=== PATIENT | female | born 1970 | race Caucasian/White ===

== ENCOUNTER 2016-06-08 10:38 | Inpatient (IN) | payer BC ==
[~2016-06-08] VITALS: Ht 160 cm; Wt 67.3 kg
--- NOTE | 2016-06-08 16:17 | DIAGNOSTIC IMAGING REPORT ---
PROCEDURE: US ABDOMEN ULTRASOUND-LIMITED INDICATION: Right abdominal pain. TECHNIQUE: Whipple scale and color Doppler sonographic images of the abdomen were obtained. COMPARISON: None. FINDINGS: Gallbladder is to moderately distended with trace pericholecystic fluid. No evidence of gallstones. Common duct is normal (6 mm). There is increased echogenicity of the liver compatible fatty infiltration (versus intrinsic liver disease). Portions of the pancreas are seen, demonstrating thickened tissues and heterogeneous appearance. Right kidney is of normal (10.2 cm).. IMPRESSION: 1. Increased echogenicity and heterogeneous appearance of the pancreas suggest pancreatitis. 2. Moderate increased echogenicity of the liver compatible fatty infiltration (versus intrinsic liver disease). 3. Moderate distention of the gallbladder with trace pericholecystic fluid, but no evidence of gallstones. 4. Normal common duct (7 mm). 5. Findings discussed with PAC. Moncho
--- NOTE | 2016-06-08 16:32 | DIAGNOSTIC IMAGING REPORT ---
PROCEDURE: CT ABD/PELVIS WITH CONTRAST CLINICAL INDICATION: No abdominal pain, initial encounter TECHNIQUE: 125 ml of Isovue 300 were injected intravenously and axial images were obtained of the entire abdomen and pelvis with sagittal and coronal reformations. COMPARISON: Abdominal ultrasound 06/08/2016 FINDINGS: ABDOMEN: Lung bases are clear. Heart size is normal. Enlarged liver (20.7 cm) with diffuse fatty infiltration. Distended gallbladder but no evidence of cholelithiasis. No biliary distention. There is inflammation around the head and tail of the pancreas with small amount of fluid in both anterior pararenal spaces. No evidence of a pseudocyst or calculi . Spleen, adrenal glands and kidneys are normal. Minor atherosclerosis. There is some fluid in the ascending and transverse colon. There is also fluid and several nondilated loops of small bowel. PELVIS: Punctate appendicolith in the tip of the appendix which is otherwise unremarkable. Small to mild ascites. 2 cm fibroid. 1.4 cm right ovarian cyst. Two small sclerotic right iliac lesions probably bone islands although neoplastic changes are a consideration. Correlate clinically. Mild degenerative changes of the spine . IMPRESSION: 1. Mild pancreatitis with a small to mild ascites 2. Distended gallbladder without gallstones. 3. Hepatomegaly with steatosis 4. Fluid in the ascending and transverse colon which may indicate enterocolitis 5. Fibroid 6. Two right iliac sclerotic lesions, likely bone islands. Neoplastic changes are a consideration. Correlate clinically 7. Results discussed with NANDO Ramirez All CT scans at this facility use dose modulation, iterative reconstruction, and/or weight-based dosing when appropriate to reduce radiation dose to as low as reasonably achievable.
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
--- NOTE | 2016-06-08 16:44 | ED ORDER SUMMARY ---
..... Patient: MARIELA [facility]OU [facility] VisitID: [id number] [address] [place] [address] 45y, F Registration Date/Time: 06/08/2016 ORDER SHEET Weight: 63.5 kg (stated) Allergies: No Known Drug Allergy GENERAL ORDERS: CBC w Diff Urgent (13:33 06/08/2016 EKoroleva P.A.-C) (Ack 13:35 LTapper) (14:22 HOShaughnessy R.N.) CMP Urgent (13:33 06/08/2016 EKoroleva P.A.-C) (Ack 13:35 LTapper) (14:22 HOShaughnessy R.N.) Lipase Urgent (13:33 06/08/2016 EKoroleva P.A.-C) (Ack 13:35 LTapper) (14:22 HOShaughnessy R.N.) US Abdomen Limited (No) Urgent (14:22 06/08/2016 EKoroleva P.A.-C) (Ack 14:27 LTapper) (18:28 HOShaughnessy R.N.) UA-Culture if indicated Urgent (14:23 06/08/2016 EKoroleva P.A.-C) (Ack 14:27 LTapper) (14:41 HOShaughnessy R.N.) Urine Urgent (14:23 06/08/2016 EKoroleva P.A.-C) (Ack 14:27 LTapper) (14:41 HOShaughnessy R.N.) Urine Drug Screen Urgent (14:23 06/08/2016 EKoroleva P.A.-C) (Ack 14:27 LTapper) (14:41 HOShaughnessy R.N.) CT Abd/Pel w Cont (No) (see lab) Urgent (15:49 06/08/2016 EKoroleva P.A.-C) (Ack 15:50 LTapper) (18:28 HOShaughnessy R.N.) MEDICATION ORDERS: Zofran ODT PO 4 mg (NOW) (13:32 06/08/2016 EKoroleva P.A.-C) (Ack 13:35 MWinterer R.N.) (13:41 MWinterer R.N.) Meclizine PO 25 mg (NOW) (13:32 06/08/2016 EKoroleva P.A.-C) (Ack 13:35 MWinterer R.N.) (13:40 MWinterer R.N.) Tylenol PO 650 mg (NOW) (13:32 06/08/2016 EKoroleva P.A.-C) (Ack 13:35 MWinterer R.N.) (13:40 MWinterer R.N.) Phenergan IV 12.5 mg (HIGH ALERT MEDICATION, NOW) (14:23 06/08/2016 EKoroleva P.A.-C) (14:39 HOShaughnessy R.N.) IV FLUIDS: Dilaudid IV 1 mg (HIGH ALERT MEDICATION, NOW) (14:22 06/08/2016 EKoroleva P.A.-C) (14:41 HOShaughnessy R.N.) Dilaudid IV 1 mg (HIGH ALERT MEDICATION, NOW) (18:44 06/08/2016 EKoroleva P.A.-C) (18:55 EInderbitzen R.N.) IV NS : initial bolus none -, then 100 mL/hr for X1 (NOW); Ten (18:45 06/08/2016 EKoroleva P.A.-C) (18:54 EInderbitzen R.N.) ORDER SHEET NOTES: [Electronically signed by Sahara CrandallAThomas-C (17:33 06/08/2016)] [Electronically signed by Terry Claire R.N. (00:39 06/09/2016)] [Electronically locked/signed by Terry Claire R.N. (00:39 06/09/2016)]
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
--- NOTE | 2016-06-08 16:44 | ED ORDER SUMMARY ---
..... Patient: MARIELA LOU OrderSheet [facility] VisitID: [id number] [address] [place] [address] 45y, F Registration Date/Time: 06/08/2016 ORDER SHEET Weight: 63.5 kg (stated) Allergies: No Known Drug Allergy GENERAL ORDERS: CBC w Diff Urgent (13:33 06/08/2016 EKoroleva P.A.-C) (Ack 13:35 LTapper) (14:22 HOShaughnessy R.N.) CMP Urgent (13:33 06/08/2016 EKoroleva P.A.-C) (Ack 13:35 LTapper) (14:22 HOShaughnessy R.N.) Lipase Urgent (13:33 06/08/2016 EKoroleva P.A.-C) (Ack 13:35 LTapper) (14:22 HOShaughnessy R.N.) US Abdomen Limited (No) Urgent (14:22 06/08/2016 EKoroleva P.A.-C) (Ack 14:27 LTapper) (18:28 HOShaughnessy R.N.) UA-Culture if indicated Urgent (14:23 06/08/2016 EKoroleva P.A.-C) (Ack 14:27 LTapper) (14:41 HOShaughnessy R.N.) Urine Urgent (14:23 06/08/2016 EKoroleva P.A.-C) (Ack 14:27 LTapper) (14:41 HOShaughnessy R.N.) Urine Drug Screen Urgent (14:23 06/08/2016 EKoroleva P.A.-C) (Ack 14:27 LTapper) (14:41 HOShaughnessy R.N.) CT Abd/Pel w Cont (No) (see lab) Urgent (15:49 06/08/2016 EKoroleva P.A.-C) (Ack 15:50 LTapper) (18:28 HOShaughnessy R.N.) MEDICATION ORDERS: Zofran ODT PO 4 mg (NOW) (13:32 06/08/2016 EKoroleva P.A.-C) (Ack 13:35 MWinterer R.N.) (13:41 MWinterer R.N.) Meclizine PO 25 mg (NOW) (13:32 06/08/2016 EKoroleva P.A.-C) (Ack 13:35 MWinterer R.N.) (13:40 MWinterer R.N.) Tylenol PO 650 mg (NOW) (13:32 06/08/2016 EKoroleva P.A.-C) (Ack 13:35 MWinterer R.N.) (13:40 MWinterer R.N.) Phenergan IV 12.5 mg (HIGH ALERT MEDICATION, NOW) (14:23 06/08/2016 EKoroleva P.A.-C) (14:39 HOShaughnessy R.N.) IV FLUIDS: Dilaudid IV 1 mg (HIGH ALERT MEDICATION, NOW) (14:22 06/08/2016 EKoroleva P.A.-C) (14:41 HOShaughnessy R.N.) Dilaudid IV 1 mg (HIGH ALERT MEDICATION, NOW) (18:44 06/08/2016 EKoroleva P.A.-C) (18:55 EInderbitzen R.N.) IV NS : initial bolus none -, then 100 mL/hr for X1 (NOW); Ten (18:45 06/08/2016 EKoroleva P.A.-C) (18:54 EInderbitzen R.N.) ORDER SHEET NOTES: [Electronically signed by Sahara CrandallAThomas-C (17:33 06/08/2016)] [Electronically signed by Terry Claire R.N. (00:39 06/09/2016)] [Electronically locked/signed by Terry Claire R.N. (00:39 06/09/2016)]
--- NOTE | 2016-06-08 17:55 | History & Physical Report ---
Admission Admit Date 06/08/16 Information Source Information Source: Self Reliability: Fair History Chief Complaint Recurrent nausea vomiting and upper abdominal pain History of Present Illness This is a 45-year-old female who presents to the emergency room with recurrent nausea vomiting and upper abdominal pain. She notices the pain going on for about a week or so. About 2-1/2 weeks prior to admission she accidentally fell and has been having some headaches since then. She notes no fevers or chills. She denies any alteration in mental status confusion or any other neurological symptoms besides headache. She had no loss of consciousness with this fall. She does have a history of EtOH significant use and tells me that she had gone through an alcohol withdrawal program about 2 years ago. She notes she has not drink very much over the past several weeks. She notes last drink may have been about 2-1/2 weeks ago. She has no history of hyperlipidemia. Her evaluation in the emergency room includes a CT scan of abdomen and pelvis and an ultrasound which does not reveal cholelithiasis. Her labs are significant for an elevated AST of 98 however ALT is normal total bilirubin and alkaline phosphatase are normal. Her lipase however has been noted to be 2100. She did have an elevated white count and was tachycardic upon presentation to the emergency room. Her heart rate was 119 regular and blood pressure was 120/82 with temperature of 98.2 upon presentation here. Patient History 1. Fall from ground level Social History Smoking: Quit 2 years ago Alcohol: Currently admits to drinking twice a month. Although as noted in HPI did go through alcohol withdrawal treatment and rehabilitation in 2011 This with male significant other and children Family History MOTHER (Mother with a history of colon cancer diagnosed age 58 and soon afterwardsGrandmother with a history of bladder and breast carcinoma). . Relation not specified for: Colon Cancer Medications and Allergies Medications Home medications: Are Wellbutrin daily unknown dose Current Medications Sig/Binh Start time Last Medication Dose Route Stop Time Status Admin Multivit/ 1 TAB DAILY 06/09 0900 UNV Folic Acid/Iron PO Thiamine HCl 100 MG DAILY 06/09 0900 UNV PO Famotidine/Sodium 50 ML Q12HR 06/08 2100 UNV Chloride IV Diazepam 5 MG PRN PRN 06/08 1800 UNV IV Atropine Sulfate 0.5 MG Q3MIN PRN 06/08 1745 UNV IV Dextrose/Sodium 1,000 ML ASDIRECTED 06/08 1745 UNV Chloride/Electrolyt IV 06/08 2100 Hydromorphone HCl See Dose Q2H PRN 06/08 1745 UNi Insts (1) IV 06/08 2100 Lidocaine HCl See Dose ONCE PRN 06/08 1745 UNi Insts (2) IV Morphine Sulfate 2 MG Q3M PRN 06/08 1745 UNV IV Ondansetron HCl 4 MG Q4H PRN 06/08 1745 UNV IV 06/08 2100 Enoxaparin Sodium 40 MG QAM 06/08 1739 UNVr SC Acetaminophen 650 MG Q6H PRN 06/08 1730 UNV PO Hydromorphone HCl 1 MG Q1H PRN 06/08 1730 UNV IV Naloxone HCl 0.4 MG PRN PRN 06/08 1730 UNV IV Ondansetron HCl 4 MG Q6H PRN 06/08 1730 UNV IV Sodium Chloride 1,000 ML ASDIRECTED 06/08 1730 UNV IV Dose Instructions: (1)Hydromorphone HCl: 0.5-1 MG (2)Lidocaine HCl: 1.5 MG/KG Allergies Coded Allergies: NKA (06/08/16) Review of Systems Constitutional Malaise. Denies: Fever, Chills, Sweats, Weakness. Eyes Denies: Pain, Vision Change, Conjunctival Inflammation, Redness. ENT Denies: Ear Pain, Ear Discharge, Nose Pain, Nasal Discharge, Nasal Congestion. Respiratory Denies: Cough, SOB w/exertion, Wheezing, Hemoptysis, Pleuritic Pain. Cardiovascular Denies: Chest Pain, Palpitations, Orthopnea, PND, Edema, Light-headedness. Gastrointestinal Nausea, Vomiting, Abdominal Pain. Denies: Diarrhea, Constipation, Melena, Hematochezia. Genitourinary Denies: Dysuria, Frequency. Musculoskeletal Neck Pain (has had some neck pain improvi). Denies: Shoulder Pain, Arm Pain, Back Pain. Skin Denies: Rash, Lesions, Jaundice. Neurological Other (complains of mild headaches on). Denies: Weakness, Numbness, Incoordination, Change in speech, Confusion, Seizures. Physical Exam Vital Signs / I&Os See T system for vital sign review General Appearance Alert, Oriented X3, Cooperative, Mild distress HEENT Normal exam, PERRLA, EOMI Lungs Clear to auscultation, Normal air movement Neck Supple, No JVD, No masses Cardiovascular Regular rate and rhythm (tachycardic but regular rhythm), Normal S1 and S2, No murmurs, gallops, rubs Abdomen abdomen is soft it is tender diffusely but worse in the epigastrium. No rebound or guarding noted. Bowel sounds are present. Extremities No edema Skin No Rashes Neurological alert and oriented 3, motor and sensory are intact bilaterally. Psych/Mental Status does appear slightly anxious area LAB Results Laboratory Tests 06/08 06/08 06/08 1345 1346 1434 Chemistry Plasma Sodium (136 - 145 mmol/L) 137 Plasma Potassium (3.5 - 5.1 mmol/L) 3.4 Plasma Chloride (98 - 107 mmol/L) 97 CO2 (Enzymatic) (21 - 32 mmol/L) 36 BUN (7 - 18 mg/dL) 15 Creatinine (0.6 - 1.3 mg/dL) 0.8 Est GFR ( Amer) (mL/min) >60 Est GFR (Non-Af Amer) (mL/min) >60 Glucose (70 - 110 mg/dL) 88 Plasma Calcium (8.5 - 10.1 mg/dL) 9.1 Total Bilirubin (0.0 - 1.0 mg/dL) 0.7 AST (15 - 37 U/L) 98 ALT (12 - 78 U/L) 40 Alkaline Phosphatase (46 - 116 U/L) 73 Troponin Pending Total Protein (6.4 - 8.2 g/dL) 7.1 Albumin (3.3 - 5.0 g/dL) 3.0 Lipase (73 - 393 U/L) 2198 Hematology WBC (4.5 - 11.5 K/uL) 18.5 RBC (4.00 - 5.20 M/uL) 4.15 Hgb (12.0 - 16.0 gm/dL) 13.6 Hct (36.0 - 46.0 %) 43.2 MCV (80 - 100 fL) 104 MCH (26 - 34 pg) 33 RDW (11.6 - 14.8 %) 19.5 Neut % (Auto) (50 - 75 %) 89.1 Lymph % (Auto) (25 - 40 %) 4.9 [place] % (Auto) (3 - 14 %) 5.8 Eos % (Auto) (0 - 4 %) 0.1 Baso % (Auto) (0 - 2 %) 0.1 Plt Count, EDTA (150 - 400 K/uL) 169 PUBS MCHC (31 - 37 g/dL) 31 Toxicology Urine Opiates Screen (NEGATIVE) NEGATIVE Urine Methadone Screen (NEGATIVE) NEGATIVE Ur Barbiturates Screen (NEGATIVE) NEGATIVE U Amphetamin/Meth Scrn (NEGATIVE) NEGATIVE MDMA (Ecstasy) Screen (NEGATIVE) POSITIVE U Benzodiazepines Scrn (NEGATIVE) NEGATIVE Urine Cocaine Screen (NEGATIVE) NEGATIVE U Cannabinoids Screen (NEGATIVE) NEGATIVE Urines Urine Color YELLOW Urine Appearance CLEAR Urine pH (5.0 - 8.0) 6.0 Ur Specific [place] (1.010 - 1.030) 1.025 Urine Protein (NEGATIVE) 2+ Urine Ketones (NEGATIVE) 1+ Urine Blood (NEGATIVE) TRACE-INTACT Urine Nitrite (NEGATIVE) NEGATIVE Urine Bilirubin (NEGATIVE) 2+ Ur Bilirubin Confirm (NEGATIVE) NEGATIVE Urine Urobilinogen (0.2 - 1.0 EU/dL) 0.2 Ur Leukocyte Esterase (NEGATIVE) NEGATIVE Urine RBC (0 - 1 rbc/hpf) 3-5 Urine WBC (0 - 1 wbc/hpf) NONE SEEN Ur Epithelial Cells (0 - 5 EPI/hpf) 1-3 Urine Bacteria (NONE SEEN) NONE SEEN Urine Glucose (NEGATIVE) NEGATIVE Urine Comment CULT NOT INDICATED 06/08 06/08 1434 1746 Chemistry Plasma Magnesium Pending Urines Urine Test NEGATIVE Imaging REPORT #: [id number] DATE OF EXAM(S): 06/08/16 PROCEDURE: CT ABD/PELVIS WITH CONTRAST CLINICAL INDICATION: No abdominal pain, initial encounter TECHNIQUE: 125 ml of Isovue 300 were injected intravenously and axial images were obtained of the entire abdomen and pelvis with sagittal and coronal reformations. COMPARISON: Abdominal ultrasound 06/08/2016 FINDINGS: ABDOMEN: Lung bases are clear. Heart size is normal. Enlarged liver (20.7 cm) with diffuse fatty infiltration. Distended gallbladder but no evidence of cholelithiasis. No biliary distention. There is inflammation around the head and tail of the pancreas with small amount of fluid in both anterior pararenal spaces. No evidence of a pseudocyst or calculi . Spleen, adrenal glands and kidneys are normal. Minor atherosclerosis. There is some fluid in the ascending and transverse colon. There is also fluid and several nondilated loops of small bowel. PELVIS: Punctate appendicolith in the tip of the appendix which is otherwise unremarkable. Small to mild ascites. 2 cm fibroid. 1.4 cm right ovarian cyst. Two small sclerotic right iliac lesions probably bone islands although neoplastic changes are a consideration. Correlate clinically. Mild degenerative changes of the spine . IMPRESSION: 1. Mild pancreatitis with a small to mild ascites 2. Distended gallbladder without gallstones. 3. Hepatomegaly with steatosis 4. Fluid in the ascending and transverse colon which may indicate enterocolitis 5. Fibroid 6. Two right iliac sclerotic lesions, likely bone islands. Neoplastic changes are a consideration. Correlate clinically 7. Results discussed with NANDO Ramirez All CT scans at this facility use dose modulation, iterative reconstruction, and/or weight-based dosing when appropriate to reduce radiation dose to as low as reasonably achievable. Dictated by: SUZI HUSTON MD D: LAN;06/08/16 1631 <Electronically signed by SUZI HUSTON MD in OV> 06/08/16 1632 REPORT #: [id number] DATE OF EXAM(S): 06/08/16 PROCEDURE: US ABDOMEN ULTRASOUND-LIMITED INDICATION: Right abdominal pain. TECHNIQUE: Whipple scale and color Doppler sonographic images of the abdomen were obtained. COMPARISON: None. FINDINGS: Gallbladder is to moderately distended with trace pericholecystic fluid. No evidence of gallstones. Common duct is normal (6 mm). There is increased echogenicity of the liver compatible fatty infiltration (versus intrinsic liver disease). Portions of the pancreas are seen, demonstrating thickened tissues and heterogeneous appearance. Right kidney is of normal (10.2 cm).. IMPRESSION: 1. Increased echogenicity and heterogeneous appearance of the pancreas suggest pancreatitis. 2. Moderate increased echogenicity of the liver compatible fatty infiltration (versus intrinsic liver disease). 3. Moderate distention of the gallbladder with trace pericholecystic fluid, but no evidence of gallstones. 4. Normal common duct (7 mm). 5. Findings discussed with NANDO Ivan. Dictated by: FLACA ALDRIDGE MD D: ADÁN;06/08/161615 <Electronically signed by FLACA ALDRIDGE MD in OV> 06/08/161616 Assessment and Plan Problem List 1. Acute pancreatitis Qualifiers Pancreatitis type: unspecified pancreatitis type Acute pancreatitis complication: unspecified Qualified Code: K85.90 - Acute pancreatitis without necrosis or infection, unspecified Status Acute Onset Date 06/01/[address] on nothing by mouth status. IV fluid hydration at 200 mils per hour of normal saline Recheck labs in a.m. Unclear etiology consider MRCP. We'll check fasting lipid panel in a.m. May be related to EtOH history is a bit vague we'll check blood alcohol level. No new medications to possibly incite acute pancreatitis. 2. History of ETOH abuse Status Chronic Plan We'll monitor for signs and symptoms of EtOH withdrawal. We'll place on alcohol CIWA protocol. Of note patient did have a positive UDS for ecstasy AKA MDMA 3. HEPATIC STEATOSIS Plan Has evidence of hepatic steatosis. Her imaging may be related to EtOH abuse. May be related to hyperlipidemia. Patient is not morbidly obese to be an etiology. 4. DVT prophylaxis Plan We'll place on subcutaneous prophylactic Lovenox. We'll also check PT PTT. Especially in light of hepatic steatosis and EtOH abuse. E&M Codes Admission: Inpt-High/[id number]
[2016-06-08 19:51] VITALS: BP 130/89
[2016-06-08] MEDS ORDERED: WELLBUTRIN SR200 MG PO (23:21)
--- NOTE | 2016-06-09 00:40 | ED DISCHARGE INSTRUCTIONS ---
Patient: MARIELA LOU General Instructions [facility] VisitID: [id number] [address] [place] [address] 45y, F Registration Date/Time: 06/08/2016 Pancreatitis Ground Level fall Concussion. (Electronically signed by Sahara Crandall P.A.-C 06/08/2016 17:33)
--- NOTE | 2016-06-09 00:40 | ED DISCHARGE INSTRUCTIONS ---
Patient: MARIELA LOU General Instructions [facility] VisitID: [id number] [address] [place] [address] 45y, F Registration Date/Time: 06/08/2016 Pancreatitis Ground Level fall Concussion. (Electronically signed by Sahara Crandall P.A.-C 06/08/2016 17:33)
--- NOTE | 2016-06-09 00:40 | ED MAR SUMMARY ---
..... Medication Administration Record [facility] [address] [place] [address] Patient: MARIELA LOU Visit ID: [id number] 45y, F Weight: 63.5 kg Height/Length: 63 in BMI: 24.8 ALLERGIES: No Known Drug Allergy Given 13:40 06/08/2016 Luna Maurer R.N. Medication Administered: MECLIZINE [PO], Dose: 25 mg PO. Medication Ordered: Meclizine PO 25 mg (NOW). Given 13:06/08/2016 Luna Maurer R.N. Medication Administered: TYLENOL [PO] (ACETAMINOPHEN), Dose: 650 mg PO. Medication Ordered: Tylenol PO 650 mg (NOW). Given 13:06/08/2016 Luna Maurer R.N. Medication Administered: ZOFRAN ODT [PO] (ONDANSETRON), Dose: 4 mg PO. Medication Ordered: Zofran ODT PO 4 mg (NOW). Given 14:39 06/08/2016 Terry Claire R.N. Medication Administered: PHENERGAN [IVP] (PROMETHAZINE HCL), Dose: 12.5 mg IVP over 5 minute(s), Site: #1 right forearm. Medication Ordered: Phenergan IV 12.5 mg (HIGH ALERT MEDICATION, NOW). Given 14:06/08/2016 Terry Claire R.N. Medication Administered: DILAUDID [IVP] (HYDROMORPHONE HCL PF), Dose: 1 mg IVP over 2 minute(s), Site: #1 right forearm. Medication Ordered: Dilaudid IV 1 mg (HIGH ALERT MEDICATION, NOW). Given 18:50 06/08/2016 Eliane Butt R.N. Medication Administered: DILAUDID [IVP] (HYDROMORPHONE HCL PF), Dose: 1 mg IVP over 1 minute(s), Site: #1 right forearm. Medication Ordered: Dilaudid IV 1 mg (HIGH ALERT MEDICATION, NOW). Start 18:50 06/08/2016 Inderbitzen, Eliane, R.N. Medication Administered: IV NS (SALINE), Dose: IV Fluids over 10 hour(s), Rate: 100 mL/hr, Dispensed: 1000 mL bag, Site: #1 right forearm. Medication Ordered: IV NS : initial bolus none -, then 100 mL/hr for X1 (NOW); Ten.
--- NOTE | 2016-06-09 00:40 | ED MAR SUMMARY ---
..... Medication Administration Record [facility] [address] [place] [place] [address] Patient: MARIELA LOU Visit ID: [id number] 45y, F Weight: 63.5 kg Height/Length: 63 in BMI: 24.8 ALLERGIES: No Known Drug Allergy Given 13:40 06/08/2016 Luna Maurer R.N. Medication Administered: MECLIZINE [PO], Dose: 25 mg PO. Medication Ordered: Meclizine PO 25 mg (NOW). Given 13:06/08/2016 Luna Maurer R.N. Medication Administered: TYLENOL [PO] (ACETAMINOPHEN), Dose: 650 mg PO. Medication Ordered: Tylenol PO 650 mg (NOW). Given 13:06/08/2016 Luna Maurer R.N. Medication Administered: ZOFRAN ODT [PO] (ONDANSETRON), Dose: 4 mg PO. Medication Ordered: Zofran ODT PO 4 mg (NOW). Given 14:39 06/08/2016 Terry Claire R.N. Medication Administered: PHENERGAN [IVP] (PROMETHAZINE HCL), Dose: 12.5 mg IVP over 5 minute(s), Site: #1 right forearm. Medication Ordered: Phenergan IV 12.5 mg (HIGH ALERT MEDICATION, NOW). Given 14:06/08/2016 Terry Claire R.N. Medication Administered: DILAUDID [IVP] (HYDROMORPHONE HCL PF), Dose: 1 mg IVP over 2 minute(s), Site: #1 right forearm. Medication Ordered: Dilaudid IV 1 mg (HIGH ALERT MEDICATION, NOW). Given 18:50 06/08/2016 Eliane Butt R.N. Medication Administered: DILAUDID [IVP] (HYDROMORPHONE HCL PF), Dose: 1 mg IVP over 1 minute(s), Site: #1 right forearm. Medication Ordered: Dilaudid IV 1 mg (HIGH ALERT MEDICATION, NOW). Start 18:50 06/08/2016 Inderbitzen, Eliane, R.N. Medication Administered: IV NS (SALINE), Dose: IV Fluids over 10 hour(s), Rate: 100 mL/hr, Dispensed: 1000 mL bag, Site: #1 right forearm. Medication Ordered: IV NS : initial bolus none -, then 100 mL/hr for X1 (NOW); Ten.
--- NOTE | 2016-06-09 00:40 | ED MED RECONCILIATION SUMMARY ---
Patient: MARIELA LOU Medication Reconciliation Report [facility] VisitID: [id number] [address] [place] [address] 45y, F Registration Date/Time: 06/08/2016 Weight: 63.5 kg Height/Length: 63 in. BMI: 24.8 ALLERGIES: No Known Drug Allergy The patient's Home Medications are listed below: THE FOLLOWING MEDICATIONS NEED TO BE RECONCILED: Control Pills Wellbutrin Oral 100 mg, 2x a day The source(s) of the original Home Medication information: Not obtained. The following Medications were given to the patient in the Emergency Department: Tylenol [PO] PO 650 mg, administered: 06/08/2016 1:40:00 PM Meclizine [PO] PO 25 mg, administered: 06/08/2016 1:40:00 PM Zofran ODT [PO] PO 4 mg, administered: 06/08/2016 1:41:00 PM PHENERGAN [IVP] IVP 12.5 mg, administered: 06/08/2016 2:39:00 PM Dilaudid [IVP] IVP 1 mg, administered: 06/08/2016 2:41:00 PM IV NS IV Fluids bolus 0, then 100 mL/hr, administered: 06/08/2016 6:50:00 PM Dilaudid [IVP] IVP 1 mg, administered: 06/08/2016 6:50:00 PM The following Medications were prescribed to the patient: None.
--- NOTE | 2016-06-09 00:40 | ED MED RECONCILIATION SUMMARY ---
Patient: MARIELA LOU Medication Reconciliation Report [facility] VisitID: [id number] [address] [place] [address] 45y, F Registration Date/Time: 06/08/2016 Weight: 63.5 kg Height/Length: 63 in. BMI: 24.8 ALLERGIES: No Known Drug Allergy The patient's Home Medications are listed below: THE FOLLOWING MEDICATIONS NEED TO BE RECONCILED: Control Pills Wellbutrin Oral 100 mg, 2x a day The source(s) of the original Home Medication information: Not obtained. The following Medications were given to the patient in the Emergency Department: Tylenol [PO] PO 650 mg, administered: 06/08/2016 1:40:00 PM Meclizine [PO] PO 25 mg, administered: 06/08/2016 1:40:00 PM Zofran ODT [PO] PO 4 mg, administered: 06/08/2016 1:41:00 PM PHENERGAN [IVP] IVP 12.5 mg, administered: 06/08/2016 2:39:00 PM Dilaudid [IVP] IVP 1 mg, administered: 06/08/2016 2:41:00 PM IV NS IV Fluids bolus 0, then 100 mL/hr, administered: 06/08/2016 6:50:00 PM Dilaudid [IVP] IVP 1 mg, administered: 06/08/2016 6:50:00 PM The following Medications were prescribed to the patient: None.
[2016-06-09 02:49] VITALS: BP 122/80
[2016-06-09 06:14] VITALS: BP 113/78
--- NOTE | 2016-06-09 07:21 | Progress Note ---
Subjective General This is a 45-year-old female who presents to the emergency room with recurrent nausea vomiting and upper abdominal pain. She notices the pain going on for about a week or so. About 2-1/2 weeks prior to admission she accidentally fell and has been having some headaches since then. She notes no fevers or chills. She denies any alteration in mental status confusion or any other neurological symptoms besides headache. She had no loss of consciousness with this fall. She does have a history of EtOH significant use and tells me that she had gone through an alcohol withdrawal program about 2 years ago. She notes she has not drink very much over the past several weeks. She notes last drink may have been about 2-1/2 weeks ago. She has no history of hyperlipidemia. Her evaluation in the emergency room includes a CT scan of abdomen and pelvis and an ultrasound which does not reveal cholelithiasis. Her labs are significant for an elevated AST of 98 however ALT is normal total bilirubin and alkaline phosphatase are normal. Her lipase however has been noted to be 2100. She did have an elevated white count and was tachycardic upon presentation to the emergency room. Current: Patient states that she is very thirsty. Has abdominal pain still. Has not been with n/v. Has been moving around a little better. Physical Exam Vital Signs / I&Os Vital Signs Date Time Temp Pulse Resp B/P Pulse O2 O2 Flow FiO2 Ox Delivery Rate 06/09 0614 98.2 95 16 113/78 95 Room Air 06/09 0249 98.4 99 16 122/80 98 Room Air 06/08 1951 98.2 110 16 130/89 97 I&O 06/09 0000 06/08 1600 06/08 0800 Intake Total Output Total 300 Balance -300 General Appearance Alert, Cooperative Lungs Clear to auscultation, Normal air movement Cardiovascular Regular rate and rhythm, No murmurs, gallops, rubs Abdomen Soft, mildly tender to palpation. Extremities No edema LAB Results Laboratory Tests 06/09 06/09 06/08 06/08 06/08 0535 0150 2120 1746 1434 Chemistry Plasma Sodium (136 - 145 mmol/L) 142 Plasma Potassium (3.5 - 5.1 mmol/L) 3.1 Plasma Chloride (98 - 107 mmol/L) 104 CO2 (Enzymatic) (21 - 32 mmol/L) 32 BUN (7 - 18 mg/dL) 17 Creatinine (0.6 - 1.3 mg/dL) 0.7 Est GFR ( Amer) (mL/min) >60 Est GFR (Non-Af Amer) (mL/min) >60 Glucose (70 - 110 mg/dL) 72 Lactic Acid (0.4 - 2.0 mmol/L) 1.0 Plasma Calcium (8.5 - 10.1 mg/dL) 7.7 Plasma Magnesium (1.8 - 2.4 mg/dL) 2.1 1.2 Total Bilirubin (0.0 - 1.0 mg/dL) 0.6 AST (15 - 37 U/L) 56 ALT (12 - 78 U/L) 37 Alkaline Phosphatase (46 - 116 U/L) 60 Troponin (0.00 - 1.5 ng/mL) <0.05 Total Protein (6.4 - 8.2 g/dL) 6.2 Albumin (3.3 - 5.0 g/dL) 2.6 Triglycerides (30 - 200 mg/dL) 39 Cholesterol (140 - 200 mg/dL) 151 LDL Cholesterol, Calc (mg/dL) 60 HDL Cholesterol (32 - 96 mg/dL) 84 LDL/HDL Ratio 0.7 Cholesterol/HDL Ratio 1.8 Coronary Risk Interp (0.4 - 1.0) 0.4 Lipase (73 - 393 U/L) 963 Coagulation INR (0.8 - 1.2) 1.0 APTT (24 - 34 SECONDS) 39 Hematology WBC Pending RBC Pending Hgb Pending Hct Pending MCV Pending MCH Pending RDW Pending Plt Count, EDTA Pending PUBS MCHC Pending Toxicology Plasma/Serum Ethyl Alc (3 - 10 mg/dL) <3 Urines Urine Test NEGATIVE 06/08 06/08 06/08 1434 1346 1345 Chemistry Plasma Sodium (136 - 145 mmol/L) 137 Plasma Potassium (3.5 - 5.1 mmol/L) 3.4 Plasma Chloride (98 - 107 mmol/L) 97 CO2 (Enzymatic) (21 - 32 mmol/L) 36 BUN (7 - 18 mg/dL) 15 Creatinine (0.6 - 1.3 mg/dL) 0.8 Est GFR ( Amer) (mL/min) >60 Est GFR (Non-Af Amer) (mL/min) >60 Glucose (70 - 110 mg/dL) 88 Plasma Calcium (8.5 - 10.1 mg/dL) 9.1 Total Bilirubin (0.0 - 1.0 mg/dL) 0.7 AST (15 - 37 U/L) 98 ALT (12 - 78 U/L) 40 Alkaline Phosphatase (46 - 116 U/L) 73 Troponin (0.00 - 1.5 ng/mL) <0.05 Total Protein (6.4 - 8.2 g/dL) 7.1 Albumin (3.3 - 5.0 g/dL) 3.0 Lipase (73 - 393 U/L) 2198 Hematology WBC (4.5 - 11.5 K/uL) 18.5 RBC (4.00 - 5.20 M/uL) 4.15 Hgb (12.0 - 16.0 gm/dL) 13.6 Hct (36.0 - 46.0 %) 43.2 MCV (80 - 100 fL) 104 MCH (26 - 34 pg) 33 RDW (11.6 - 14.8 %) 19.5 Neut % (Auto) (50 - 75 %) 89.1 Lymph % (Auto) (25 - 40 %) 4.9 [place] % (Auto) (3 - 14 %) 5.8 Eos % (Auto) (0 - 4 %) 0.1 Baso % (Auto) (0 - 2 %) 0.1 Plt Count, EDTA (150 - 400 K/uL) 169 PUBS MCHC (31 - 37 g/dL) 31 Toxicology Urine Opiates Screen (NEGATIVE) NEGATIVE Urine Methadone Screen (NEGATIVE) NEGATIVE Ur Barbiturates Screen (NEGATIVE) NEGATIVE U Amphetamin/Meth Scrn (NEGATIVE) NEGATIVE MDMA (Ecstasy) Screen (NEGATIVE) POSITIVE U Benzodiazepines Scrn (NEGATIVE) NEGATIVE Urine Cocaine Screen (NEGATIVE) NEGATIVE U Cannabinoids Screen (NEGATIVE) NEGATIVE Urines Urine Color YELLOW Urine Appearance CLEAR Urine pH (5.0 - 8.0) 6.0 Ur Specific [place] (1.010 - 1.030) 1.025 Urine Protein (NEGATIVE) 2+ Urine Ketones (NEGATIVE) 1+ Urine Blood (NEGATIVE) TRACE-INTACT Urine Nitrite (NEGATIVE) NEGATIVE Urine Bilirubin (NEGATIVE) 2+ Ur Bilirubin Confirm (NEGATIVE) NEGATIVE Urine Urobilinogen (0.2 - 1.0 EU/dL) 0.2 Ur Leukocyte Esterase (NEGATIVE) NEGATIVE Urine RBC (0 - 1 rbc/hpf) 3-5 Urine WBC (0 - 1 wbc/hpf) NONE SEEN Ur Epithelial Cells (0 - 5 EPI/hpf) 1-3 Urine Bacteria (NONE SEEN) NONE SEEN Urine Glucose (NEGATIVE) NEGATIVE Urine Comment CULT NOT INDICATED Assessment and Plan Problem List 1. Acute pancreatitis Qualifiers Pancreatitis type: unspecified pancreatitis type Acute pancreatitis complication: unspecified Qualified Code: K85.90 - Acute pancreatitis without necrosis or infection, unspecified Status Acute Onset Date 06/01/16 Plan Continues with elevated lipase. Will have surgical consult regarding her gallbladder distention and pancreatitis. 2. Fall from ground level Plan Appears to be doing better. 3. History of ETOH abuse Status Chronic Plan Has etoh that is not active.
[2016-06-09 10:44] VITALS: BP 125/90
[2016-06-09 14:30] VITALS: BP 131/75
[2016-06-09 18:20] VITALS: BP 128/91
[2016-06-09 22:27] VITALS: BP 124/72
[2016-06-10 06:37] VITALS: BP 137/90
--- NOTE | 2016-06-10 07:18 | Progress Note ---
Subjective General 45 year old female that was admitted with abdominal pain and pancreatitis. Had stopped drinking the day prior. Has had some issues of withdrawls mild. No stones seen on scan and mildly enlarged gallbladder. Had some improvement with abdominal pain yesterday and improvement in lipase. Today she states she is feeling better. No cp,sob. Has been really tired mostly. Less abdominal pain. Physical Exam Vital Signs / I&Os Vital Signs Date Time Temp Pulse Resp B/P Pulse O2 O2 Flow FiO2 Ox Delivery Rate 06/10 0637 98.6 87 18 137/90 99 Room Air 06/10 0531 20 97 06/09 2310 91 20 100 2.5 06/09 2227 99.7 90 18 124/72 100 Nasal 1.0 Cannula 06/09 1820 99.1 98 18 128/91 97 Nasal 1.0 Cannula 06/09 1630 Nasal 2.0 Cannula 06/09 1600 88 16 99 06/09 1430 98.8 89 22 131/75 100 Room Air 06/09 1316 104 22 96 06/09 1044 99.9 108 16 125/90 96 Room Air I&O 06/10 0000 06/09 1600 06/09 0800 Intake Total 997 1181 Output Total 550 300 200 Balance 447 -300 981 General Appearance Alert, Cooperative Lungs Clear to auscultation, Normal air movement Cardiovascular Regular rate and rhythm, No murmurs, gallops, rubs Abdomen Soft, minimally tender to palpation Extremities No edema LAB Results Laboratory Tests 06/10 06/09 0545 0945 Chemistry Plasma Sodium (136 - 145 mmol/L) 138 Plasma Potassium (3.5 - 5.1 mmol/L) 4.0 Plasma Chloride (98 - 107 mmol/L) 104 CO2 (Enzymatic) (21 - 32 mmol/L) 28 BUN (7 - 18 mg/dL) 7 Creatinine (0.6 - 1.3 mg/dL) 0.4 Est GFR ( Amer) (mL/min) >60 Est GFR (Non-Af Amer) (mL/min) >60 Glucose (70 - 110 mg/dL) 96 Plasma Calcium (8.5 - 10.1 mg/dL) 7.3 Total Bilirubin (0.0 - 1.0 mg/dL) 0.4 AST (15 - 37 U/L) 33 ALT (12 - 78 U/L) 25 Alkaline Phosphatase (46 - 116 U/L) 60 Troponin (0.00 - 1.5 ng/mL) <0.05 Total Protein (6.4 - 8.2 g/dL) 5.3 Albumin (3.3 - 5.0 g/dL) 2.3 Lipase (73 - 393 U/L) 771 Hematology WBC (4.5 - 11.5 K/uL) 11.9 RBC (4.00 - 5.20 M/uL) 3.15 Hgb (12.0 - 16.0 gm/dL) 10.7 Hct (36.0 - 46.0 %) 31.4 MCV (80 - 100 fL) 100 MCH (26 - 34 pg) 34 RDW (11.6 - 14.8 %) 18.9 Gran % (53 - 90) 85.6 Lymph % (Auto) (25 - 40 %) 13.3 [place] % (Auto) (3 - 14 %) 1.1 Plt Count, EDTA (150 - 400 K/uL) 154 PUBS MCHC (31 - 37 g/dL) 34 Assessment and Plan Problem List 1. Pancreatitis Plan Patient with pancreatitis and will hold on PO still until she is improved more with the abdominal pain and the lipase. Etohic pancreatitis is our working diagnosis and she agrees with this. 2. History of ETOH abuse Status Chronic Plan Has recently quit and not much withdrawls per patient.
[2016-06-10 14:40] VITALS: BP 133/92
[2016-06-10 18:15] VITALS: BP 129/94
[2016-06-10 23:06] VITALS: BP 124/69
[2016-06-11 02:51] VITALS: BP 126/75
[2016-06-11 06:39] VITALS: BP 120/86
--- NOTE | 2016-06-11 07:26 | Progress Note ---
Subjective General 45 year old female that was admitted with abdominal pain and pancreatitis. Had stopped drinking the day prior. Has had some issues of withdrawls mild. No stones seen on scan and mildly enlarged gallbladder. Had some improvement with abdominal pain yesterday and improvement in lipase. Patient states she is feeling a little better. Not as tired and or confused. Abdominal pain is doing a little better overall. Still a little tender. A little thirsty but not feeling dehydrated and urinating very well. Physical Exam Vital Signs / I&Os Vital Signs Date Time Temp Pulse Resp B/P Pulse O2 O2 Flow FiO2 Ox Delivery Rate 06/11 0639 98.1 87 18 120/86 99 Room Air 06/11 0251 98.2 80 16 126/75 99 Room Air 06/10 2306 98.6 94 16 124/69 98 Room Air 06/10 1815 98.1 97 18 129/94 97 Room Air 06/10 1440 98.4 93 18 133/92 96 Room Air 06/10 1130 98.8 87 18 100 Room Air I&O 06/11 0000 06/10 1600 06/10 0800 Intake Total 908 1411 901 Output Total 2100 775 500 Balance -1192 636 401 General Appearance Alert, Oriented X3 HEENT Normal exam Lungs Clear to auscultation, Normal air movement Cardiovascular Regular rate and rhythm Abdomen Soft, No tenderness Extremities No edema LAB Results Laboratory Tests 06/11 06/10 0548 0900 Chemistry Plasma Sodium (136 - 145 mmol/L) 138 Plasma Potassium (3.5 - 5.1 mmol/L) 3.7 Plasma Chloride (98 - 107 mmol/L) 103 CO2 (Enzymatic) (21 - 32 mmol/L) 27 BUN (7 - 18 mg/dL) 2 Creatinine (0.6 - 1.3 mg/dL) 0.5 Est GFR ( Amer) (mL/min) >60 Est GFR (Non-Af Amer) (mL/min) >60 Glucose (70 - 110 mg/dL) 77 Plasma Calcium (8.5 - 10.1 mg/dL) 7.9 Lipase (73 - 393 U/L) 572 Hematology WBC (4.5 - 11.5 K/uL) 7.7 Cancelled RBC (4.00 - 5.20 M/uL) 3.25 Cancelled Hgb (12.0 - 16.0 gm/dL) 10.7 Cancelled Hct (36.0 - 46.0 %) 32.8 Cancelled MCV (80 - 100 fL) 101 Cancelled MCH (26 - 34 pg) 33 Cancelled RDW (11.6 - 14.8 %) 19.0 Cancelled Neut % (Auto) (50 - 75 %) 66.1 Lymph % (Auto) (25 - 40 %) 18.7 [place] % (Auto) (3 - 14 %) 13.0 Eos % (Auto) (0 - 4 %) 1.8 Baso % (Auto) (0 - 2 %) 0.4 Plt Count, EDTA (150 - 400 K/uL) 251 Cancelled PUBS MCHC (31 - 37 g/dL) 33 Cancelled Assessment and Plan Problem List 1. Pancreatitis Plan Patient is with abdominal pain slowly improving. Lipase improving. I will keep her NPO until tomorrow and then likely trial on clear liquid and then when taking well d/c IVF monitor on the lipase 2. History of ETOH abuse Status Chronic Plan Rec she continue abstinence. ON etoh w/d protocol.
[2016-06-11 14:13] VITALS: BP 130/89
[2016-06-11 18:20] VITALS: BP 126/79
[2016-06-11 22:34] VITALS: BP 124/64
[2016-06-12 01:46] VITALS: BP 122/64
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
[2016-06-12 06:57] VITALS: BP 136/89
[2016-06-12 11:04] VITALS: BP 117/78
[2016-06-12 14:20] VITALS: BP 118/74
[2016-06-12 18:46] VITALS: BP 120/85
[2016-06-12 22:21] VITALS: BP 129/93
[2016-06-13] VITALS (7 sets, daily range): BP systolic 118–139; BP diastolic 54–97
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
[2016-06-14 03:36] VITALS: BP 133/93
[2016-06-14 06:49] VITALS: BP 118/76
--- NOTE | 2016-06-14 08:07 | Progress Note ---
Subjective General 45 year old female that was admitted with abdominal pain and pancreatitis. Had stopped drinking the day prior. Has had some issues of withdrawls mild. No stones seen on scan and mildly enlarged gallbladder. Had some improvement with abdominal pain yesterday and improvement in lipase. Feeling improved. Pain is decreasing. Denies nausea or vomiting. Ambulating. Physical Exam Vital Signs / I&Os Vital Signs Date Time Temp Pulse Resp B/P Pulse O2 O2 Flow FiO2 Ox Delivery Rate 06/14 0649 98.2 65 18 118/76 100 Room Air 06/14 0336 98.2 69 20 133/93 100 Room Air 06/13 2220 98.4 68 20 139/97 97 Room Air 06/13 1854 98.4 77 20 127/82 96 Room Air 06/13 1457 98.4 125 20 118/83 97 Room Air 06/13 1053 98.1 78 18 126/82 93 Room Air 06/13 1032 98.1 92 18 131/54 93 Room Air I&O 06/13 0800 06/13 1600 06/14 0000 Intake Total 2642 1988 930 Output Total 1999 1250 700 Balance 642 738 230 General Appearance Alert, Oriented X3, Cooperative, No acute distress Lungs Normal exam, Clear to auscultation Cardiovascular Regular rate and rhythm Abdomen Normal bowel sounds, Tender upper abdomen without rigidity or rebound. Extremities No edema Skin No Rashes LAB Results Laboratory Tests 06/13 06/14 0914 0532 Chemistry Plasma Sodium (136 - 145 mmol/L) 142 Plasma Potassium (3.5 - 5.1 mmol/L) 3.7 Plasma Chloride (98 - 107 mmol/L) 105 CO2 (Enzymatic) (21 - 32 mmol/L) 31 BUN (7 - 18 mg/dL) 2 Creatinine (0.6 - 1.3 mg/dL) 0.6 Est GFR ( Amer) (mL/min) >60 Est GFR (Non-Af Amer) (mL/min) >60 Glucose (70 - 110 mg/dL) 94 Plasma Calcium (8.5 - 10.1 mg/dL) 8.7 Plasma Magnesium (1.8 - 2.4 mg/dL) 1.5 Total Bilirubin (0.0 - 1.0 mg/dL) 0.2 AST (15 - 37 U/L) 22 ALT (12 - 78 U/L) 21 Alkaline Phosphatase (46 - 116 U/L) 51 Total Protein (6.4 - 8.2 g/dL) 6.2 Albumin (3.3 - 5.0 g/dL) 2.4 Lipase (73 - 393 U/L) 507 428 Hematology WBC (4.5 - 11.5 K/uL) 4.7 5.1 RBC (4.00 - 5.20 M/uL) 3.14 3.19 Hgb (12.0 - 16.0 gm/dL) 10.3 10.4 Hct (36.0 - 46.0 %) 31.5 32.0 MCV (80 - 100 fL) 100 100 MCH (26 - 34 pg) 33 32 RDW (11.6 - 14.8 %) 18.5 18.1 Gran % (53 - 90) TNP Neut % (Auto) (50 - 75 %) 33 34 Lymph % (Auto) (25 - 40 %) 43 50 [place] % (Auto) (3 - 14 %) 10 5 Eos % (Auto) (0 - 4 %) 6 3 Baso % (Auto) (0 - 2 %) 5 2 Band Neutrophils % (0 - 8 %) 2 6 Metamyelocytes % (0 - 1 %) 1 0 Myelocytes (0 - 1 %) 0 0 Other Cell Type 0 RARE GIANT PLATELETS Plt Count, EDTA (150 - 400 K/uL) 423 482 Hypochromic-Microcytic 1+ Anisocytosis (manual) 2+ 1+ PUBS MCHC (31 - 37 g/dL) 33 32 Assessment and Plan Problem List 1. Pancreatitis Plan Improving slowly. Scan showed GB distention also. Will obtain HIDA scan as this may be reason for slow improvement. Will also supplement magnesium.
[2016-06-14 11:12] VITALS: BP 117/78
[2016-06-14 15:28] VITALS: BP 131/94
--- NOTE | 2016-06-14 16:04 | DIAGNOSTIC IMAGING REPORT ---
PROCEDURE: NM HEPATOBILIARY IMAGING INDICATION: Pancreatitis. Gallbladder distention. Borderline dilated pancreatic duct. TECHNIQUE: 8 mCi of technetium-99m Choletec was injected intravenously and images were acquired over a one hour time interval. Subsequently, 1.5 mcg of cholecystokinin (Kinevac) was injected with calculation of gallbladder ejection fraction. COMPARISON: Comparison is made to CT abdomen and pelvis and abdominal ultrasound studies on 06/08/2016. FINDINGS: Prompt liver uptake. Gallbladder and common duct or visualized at 11 minutes. No evidence of bowel activity at 45 minutes. Following cholecystokinin, there is prompt of bowel activity with calculated gallbladder ejection fraction of 88%. IMPRESSION: 1. There is transient delayed emptying of the common bile duct which is prompted by cholecystokinin/Kinevac. Consider an biliary spasm or medications ( e.g., narcotic pain medications). 2. Normal gallbladder with normal gallbladder ejection fraction (88%). 3. Findings discussed with Dr. Ashraf.
[2016-06-14 18:38] VITALS: BP 129/90
[2016-06-14 22:55] VITALS: BP 132/79
[2016-06-15 02:39] VITALS: BP 124/84
[2016-06-15 06:31] VITALS: BP 143/98
--- NOTE | 2016-06-15 07:27 | Progress Note ---
Subjective General 45 year old female that was admitted with abdominal pain and pancreatitis. Had stopped drinking the day prior. Has had some issues of withdrawls mild. No stones seen on scan and mildly enlarged gallbladder. HIDA scan is neg. Today is bored and a little tender. Lipase increased some yesterday to today. Constitutional Other (No cp,sob). Physical Exam Vital Signs / I&Os Vital Signs Date Time Temp Pulse Resp B/P Pulse O2 O2 Flow FiO2 Ox Delivery Rate 06/15 0631 98.2 66 16 143/98 99 Room Air 06/15 0239 98.1 73 18 124/84 98 Room Air 06/15 0019 99.0 06/14 2255 99.5 88 16 132/79 99 Room Air 06/14 2014 Room Air 06/14 1838 99.0 89 16 129/90 100 Room Air 06/14 1528 98.4 98 16 131/94 96 Room Air 06/14 1112 98.6 83 18 117/78 96 Room Air 0.0 I&O 06/15 0000 06/14 1600 06/14 0800 Intake Total 240 1114 2407 Output Total 200 950 Balance 40 1114 1457 General Appearance Alert, Cooperative Lungs Clear to auscultation, Normal air movement Cardiovascular Regular rate and rhythm Abdomen Soft, minimally tender to palpation mid upper abdomen. Extremities Normal exam LAB Results Laboratory Tests 06/15 0555 Chemistry Plasma Sodium (136 - 145 mmol/L) 142 Plasma Potassium (3.5 - 5.1 mmol/L) 4.0 Plasma Chloride (98 - 107 mmol/L) 107 CO2 (Enzymatic) (21 - 32 mmol/L) 29 BUN (7 - 18 mg/dL) 2 Creatinine (0.6 - 1.3 mg/dL) 0.6 Est GFR ( Amer) (mL/min) >60 Est GFR (Non-Af Amer) (mL/min) >60 Glucose (70 - 110 mg/dL) 105 Plasma Calcium (8.5 - 10.1 mg/dL) 8.4 Plasma Magnesium (1.8 - 2.4 mg/dL) 2.0 Total Bilirubin (0.0 - 1.0 mg/dL) 0.2 AST (15 - 37 U/L) 18 ALT (12 - 78 U/L) 22 Alkaline Phosphatase (46 - 116 U/L) 52 Total Protein (6.4 - 8.2 g/dL) 6.2 Albumin (3.3 - 5.0 g/dL) 2.5 Lipase (73 - 393 U/L) 446 Hematology WBC (4.5 - 11.5 K/uL) 5.9 RBC (4.00 - 5.20 M/uL) 3.23 Hgb (12.0 - 16.0 gm/dL) 10.6 Hct (36.0 - 46.0 %) 32.5 MCV (80 - 100 fL) 101 MCH (26 - 34 pg) 33 RDW (11.6 - 14.8 %) 18.1 Neut % (Auto) (50 - 75 %) Pending Lymph % (Auto) (25 - 40 %) Pending [place] % (Auto) (3 - 14 %) Pending Band Neutrophils % (0 - 8 %) Pending Plt Count, EDTA (150 - 400 K/uL) 573 PUBS MCHC (31 - 37 g/dL) 33 Assessment and Plan Problem List 1. Pancreatitis Plan Heplock IV. Full liq diet. Will wait 1 more day until d/c unless doing great this pm. 2. Concussion Plan Much improved per patient back to baseline. 3. Fall from ground level Plan Is improving at this time.
[2016-06-15 10:12] VITALS: BP 129/92
--- NOTE | 2016-06-15 13:08 | Provider's Discharge Care Plan ---
Problem, Goal, Plan Problem List 1. Pancreatitis Instructions: Follow up as directed, No etoh 2. Concussion Instructions: call if any concerns 3. History of ETOH abuse Instructions: avoid etoh
--- NOTE | 2016-06-15 16:21 | DISCHARGE SUMMARY ---
ADMIT DATE: 06/08/2016 DISCHARGE DATE: 06/15/2016 ADMITTING DIAGNOSES: 1. Pancreatitis 2. Fall 3. Head contusion 4. abnormal ultrasound DISCHARGE DIAGNOSES: 1. Pancreatitis 2. Fall 3. Head contusion 4. abnormal ultrasound BRIEF HISTORY: Please refer to the admit dictation for details, but this is a 45 -year-old female who presented to the ED with abdominal pain. She initially was diagnosed with pancreatitis. It seems that she had stopped drinking a couple days prior and had been a very heavy drinker. HOSPITAL COURSE: Her workup in the hospital included a HIDA scan that was negative and an ultrasound that showed a slightly enlarged gallbladder. At time of discharge, she was feeling better. She was afebrile. Her vital signs were stable. She had minimal to no abdominal pain. She has been tolerating a full liquid diet. Her labs were still abnormal, with a lipase that was in the 400s, much improved from her initial admission lipase of 2198. She wanted to have discharge home even though I recommended she wait until the following day and rechecking on her lipase again. She had been on a liquid diet and labs stable, without pain, for the last couple of days, though in the 400s for her lipase. DISCHARGE INSTRUCTIONS/MEDICATIONS: Her discharge was to home. Follow up in 1-2 weeks. Continue with Wellbutrin 150 mg p.o. b.i.d. for medications. Low-fat, full liquid diet until followup, and avoid all alcohol.
== END 2016-06-15 14:15 | disposition home or self-care (01) | DRG 439 ==
LOC: ED SRH 10:38 → TRANS SRH 17:17 → ACUTE2 SRH 17:46 → SCU SRH 06-11 05:48 → ACUTE2 SRH 06-11 05:49
PROVIDERS: ADMIT Specialist
PROC: 3E0234Z Introduction of Serum, Toxoid and Vaccine into Muscle, Percutaneous Approach (ICD-10-PCS; principal; 2016-06-11)
DX: K85.90 Acute pancreatitis without necrosis or infection, unspecified (principal); F10.230 Alcohol dependence with withdrawal, uncomplicated; R11.2 Nausea with vomiting, unspecified; S06.0X0A Concussion without loss of consciousness, initial encounter; W18.39XA Other fall on same level, initial encounter; Y93.K1 Activity, walking an animal; Y92.414 Local residential or business street as the place of occurrence of the external cause; Y99.8 Other external cause status; Z23 Encounter for immunization
CPT/HCPCS: 29257; 85241; 90004; 90047; 90074; 90098; 90100; 90616; 91643; 92010; 92031; 92235; 92690; 92720; 92760; 92761; 92762; 92763; 92764; 92765; 92766; 92767; 93070; 94001; 94060; 95059

== ENCOUNTER 2016-09-05 23:03 | Emergency (ER) | payer BC ==
[~2016-09-05 23:03] MED LIST: WELLBUTRIN SR200 MG PO
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
--- NOTE | 2016-09-06 03:33 | ED ORDER SUMMARY ---
..... Patient: MARIELA LOU OrderSheet [facility] VisitID: [id number] [place] [address] 45y, F Registration Date/Time: 09/05/2016 ORDER SHEET Weight: 58.9 kg (stated) Allergies: No Known Drug Allergy GENERAL ORDERS: Earth Moving Technician (Continuous) (Seizure) (23:41 09/05/2016 JQuivey R.N. per protocol) (23:42 JQuivey R.N.) CBC w Diff Urgent (23:42 09/05/2016 JQuivey R.N. per protocol) (Ack 23:43 CHagerty ER [place]) (23:43 CHagerty ER [place]) (Cancelled: Other23:51 Alex PEREZ) BMP Urgent (23:42 09/05/2016 JQuivey R.N. per protocol) (Ack 23:43 CHagerty ER [place]) (23:43 CHagerty ER [place]) (Cancelled: Other23:51 Alex PEREZ) Calcium Urgent (23:42 09/05/2016 JQuivey R.N. per protocol) (Ack 23:43 CHagerty ER [place]) (23:43 CHagerty ER [place]) (Cancelled: Other23:51 Alex PEREZ) Magnesium Urgent (23:42 09/05/2016 JQuivey R.N. per protocol) (Ack 23:43 CHagerty ER [place]) (23:43 CHagerty ER [place]) (Cancelled: Other23:51 Alex PEREZ) Ethyl Alcohol Urgent (23:42 09/05/2016 JQuivey R.N. per protocol) (Ack 23:43 CHagerty ER [place]) (23:43 CHagerty ER [place]) Seizure Precautions (23:42 09/05/2016 JQuivey R.N. per protocol) (23:42 JQuivey R.N.) Cardiac Panel Stat (23:51 09/05/2016 Alex PEREZ) (Ack 23:55 CHagerty ER [place]) (0:39 JQuivey R.N.) TSH Urgent (23:51 09/05/2016 Alex PEREZ) (Ack 23:55 CHagmadalyn ER [place]) (0:39 JQuivey R.N.) UA-Culture if indicated Urgent (23:52 09/05/2016 Alex PEREZ) (Ack 23:55 Wale ER [place]) (1:19 JQuivey R.N.) Urine Urgent (23:52 09/05/2016 Alex PEREZ) (Ack 23:55 Wale ER [place]) (1:19 JQuivey R.N.) Urine Drug Screen Urgent (23:52 09/05/2016 Alex PEREZ) (Ack 23:55 Wale ER [place]) (1:19 JQuivey R.N.) CT Head wo Cont Urgent (23:56 09/05/2016 Alex PEREZ) (Ack 23:58 Wale ER [place]) (0:31 RFay) CT Cervical Spine wo Cont Urgent (23:57 09/05/2016 Alex PEREZ) (Ack 23:58 Wale ER [place]) (0:31 RFay) Magnesium Urgent (02:12 09/06/2016 Alex PEREZ) (Ack 2:17 Wale ER [place]) (2:29 JQuivey R.N.) Potassium Urgent (02:12 09/06/2016 Alex PEREZ) (Ack 2:17 Wale ER [place]) (2:29 JQuivey R.N.) MEDICATION ORDERS: KCl PO 20 meq (NOW) (02:10 09/06/2016 Alex PEREZ) (Ack 2:12 JQuivey R.N.) (2:25 JQuivey R.N.) IV FLUIDS: IV NS : initial bolus none -, then 1000 mL/hr (NOW) (23:23 09/05/2016 JQuivey R.N. per protocol) (23:24 JQuivey R.N.) Ativan IV 1 mg (NOW) (23:52 09/05/2016 Alex PEREZ) (Ack 0:09 JQuivey R.N.) (0:39 JQuivey R.N.) Zofran IV 4 mg (NOW) (23:52 09/05/2016 Alex PEREZ) (Ack 0:10 JQuivey R.N.) (0:39 JQuivey R.N.) IV NS with Normal Saline 1 Liter, Magnesium Sulfate 2 gm/L, Multivitamin Concentrate Intravenous 1 amp/L, Potassium Chloride 20 meq/L, Thiamine HCl 100 mg/L: initial bolus 1000 mL (1000 mL/hr), then 150 mL/hr for 6h (NOW); Routine (23:55 09/05/2016 Alex PEREZ) (Ack 0:10 JQuivey R.N.) (0:38 JQuivey R.N.) Rocephin IV 2 gm/50mL (NOW) (02:52 09/06/2016 Alex PEREZ) (Ack 3:01 JQuivey R.N.) (3:09 JQuivey R.N.) ORDER SHEET NOTES: [Electronically signed by Ciro Tineo R.N. (03:50 09/06/2016)] [Electronically signed by Dixon Heath MD (16:31 09/08/2016)] [Electronically locked/signed by Ciro Tineo R.N. (03:50 09/06/2016)]
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
--- NOTE | 2016-09-06 03:33 | ED ORDER SUMMARY ---
..... Patient: MARIELA LOU OrderSheet [facility] VisitID: [id number] [place] [address] 45y, F Registration Date/Time: 09/05/2016 ORDER SHEET Weight: 58.9 kg (stated) Allergies: No Known Drug Allergy GENERAL ORDERS: Physical Geographer (Continuous) (Seizure) (23:41 09/05/2016 JQuivey R.N. per protocol) (23:42 JQuivey R.N.) CBC w Diff Urgent (23:42 09/05/2016 JQuivey R.N. per protocol) (Ack 23:43 CHagerty ER Chemical Process Equipment Operator) (23:43 CHagerty ER Chemical Process Equipment Operator) (Cancelled: Other23:51 Alex PEREZ) BMP Urgent (23:42 09/05/2016 JQuivey R.N. per protocol) (Ack 23:43 CHagerty ER Chemical Process Equipment Operator) (23:43 CHagerty ER Chemical Process Equipment Operator) (Cancelled: Other23:51 Aelx PEREZ) Calcium Urgent (23:42 09/05/2016 JQuivey R.N. per protocol) (Ack 23:43 CHagerty ER Chemical Process Equipment Operator) (23:43 CHagerty ER Chemical Process Equipment Operator) (Cancelled: Other23:51 Alex PEREZ) Magnesium Urgent (23:42 09/05/2016 JQuivey R.N. per protocol) (Ack 23:43 CHagerty ER Chemical Process Equipment Operator) (23:43 CHagerty ER Chemical Process Equipment Operator) (Cancelled: Other23:51 Alex PEREZ) Ethyl Alcohol Urgent (23:42 09/05/2016 JQuivey R.N. per protocol) (Ack 23:43 CHagerty ER Chemical Process Equipment Operator) (23:43 CHagerty ER Chemical Process Equipment Operator) Seizure Precautions (23:42 09/05/2016 JQuivey R.N. per protocol) (23:42 JQuivey R.N.) Cardiac Panel Stat (23:51 09/05/2016 Alex PEREZ) (Ack 23:55 CHagerty ER Chemical Process Equipment Operator) (0:39 JQuivey R.N.) TSH Urgent (23:51 09/05/2016 Alex PEREZ) (Ack 23:55 CHagmadalyn ER Chemical Process Equipment Operator) (0:39 JQuivey R.N.) UA-Culture if indicated Urgent (23:52 09/05/2016 Alex PEREZ) (Ack 23:55 Wale ER Chemical Process Equipment Operator) (1:19 JQuivey R.N.) Urine Urgent (23:52 09/05/2016 Alex PEREZ) (Ack 23:55 Wale ER Chemical Process Equipment Operator) (1:19 JQuivey R.N.) Urine Drug Screen Urgent (23:52 09/05/2016 Alex PEREZ) (Ack 23:55 Wale ER Chemical Process Equipment Operator) (1:19 JQuivey R.N.) CT Head wo Cont Urgent (23:56 09/05/2016 Alex PEREZ) (Ack 23:58 Wale ER Chemical Process Equipment Operator) (0:31 RFay) CT Cervical Spine wo Cont Urgent (23:57 09/05/2016 Alex PEREZ) (Ack 23:58 Wale ER Chemical Process Equipment Operator) (0:31 RFay) Magnesium Urgent (02:12 09/06/2016 Alex PEREZ) (Ack 2:17 Wale ER Chemical Process Equipment Operator) (2:29 JQuivey R.N.) Potassium Urgent (02:12 09/06/2016 Alex PEREZ) (Ack 2:17 Wale ER Chemical Process Equipment Operator) (2:29 JQuivey R.N.) MEDICATION ORDERS: KCl PO 20 meq (NOW) (02:10 09/06/2016 Alex PEREZ) (Ack 2:12 JQuivey R.N.) (2:25 JQuivey R.N.) IV FLUIDS: IV NS : initial bolus none -, then 1000 mL/hr (NOW) (23:23 09/05/2016 JQuivey R.N. per protocol) (23:24 JQuivey R.N.) Ativan IV 1 mg (NOW) (23:52 09/05/2016 Alex PEREZ) (Ack 0:09 JQuivey R.N.) (0:39 JQuivey R.N.) Zofran IV 4 mg (NOW) (23:52 09/05/2016 Alex PEREZ) (Ack 0:10 JQuivey R.N.) (0:39 JQuivey R.N.) IV NS with Normal Saline 1 Liter, Magnesium Sulfate 2 gm/L, Multivitamin Concentrate Intravenous 1 amp/L, Potassium Chloride 20 meq/L, Thiamine HCl 100 mg/L: initial bolus 1000 mL (1000 mL/hr), then 150 mL/hr for 6h (NOW); Routine (23:55 09/05/2016 Alex PEREZ) (Ack 0:10 JQuivey R.N.) (0:38 JQuivey R.N.) Rocephin IV 2 gm/50mL (NOW) (02:52 09/06/2016 Alex PEREZ) (Ack 3:01 JQuivey R.N.) (3:09 JQuivey R.N.) ORDER SHEET NOTES: [Electronically signed by Ciro Tineo R.N. (03:50 09/06/2016)] [Electronically signed by Dixon Heath MD (16:31 09/08/2016)] [Electronically locked/signed by Ciro Tineo R.N. (03:50 09/06/2016)]
--- NOTE | 2016-09-06 06:55 | DIAGNOSTIC IMAGING REPORT ---
PROCEDURE: CT HEAD WITHOUT CONTRAST INDICATION: TRAUMA/INJURY TECHNIQUE: Noncontrast axial images with sagittal and coronal reformations. Preliminary report [facility] COMPARISON: Compared to a head CT on 08/19/2014. FINDINGS: Mild to moderate extracranial soft tissue swelling over the left parietal scalp. No evidence of skull fracture. Brain and ventricles are normal. No evidence of an acute process or hemorrhage. There are acute fractures of bilateral nasal bones with deviation of the nose towards the right. Sinuses and mastoids are normal. IMPRESSION: 1. There are acute fractures of bilateral nasal bones with deviation of the nose towards the right. 2. Mild to moderate extracranial soft tissue swelling over the left parietal scalp. head CT. 3. No evidence of intracranial injury. 4. Preliminary report provided to Dr. Dixon Heath. All CT scans at this facility use dose modulation, iterative reconstruction, and/or weight-based dosing when appropriate to reduce radiation dose to as low as reasonably achievable.
--- NOTE | 2016-09-06 06:55 | DIAGNOSTIC IMAGING REPORT ---
PROCEDURE: CT HEAD WITHOUT CONTRAST INDICATION: TRAUMA/INJURY TECHNIQUE: Noncontrast axial images with sagittal and coronal reformations. [facility] COMPARISON: Compared to a head CT on 08/19/2014. FINDINGS: Mild to moderate extracranial soft tissue swelling over the left parietal scalp. No evidence of skull fracture. Brain and ventricles are normal. No evidence of an acute process or hemorrhage. There are acute fractures of bilateral nasal bones with deviation of the nose towards the right. Sinuses and mastoids are normal. IMPRESSION: 1. There are acute fractures of bilateral nasal bones with deviation of the nose towards the right. 2. Mild to moderate extracranial soft tissue swelling over the left parietal scalp. head CT. 3. No evidence of intracranial injury. 4. Preliminary report provided to Dr. Dixon Heath. All CT scans at this facility use dose modulation, iterative reconstruction, and/or weight-based dosing when appropriate to reduce radiation dose to as low as reasonably achievable.
--- NOTE | 2016-09-06 06:59 | DIAGNOSTIC IMAGING REPORT ---
PROCEDURE: CT CERVICAL SPINE W/O CONTRAST INDICATION: TRAUMA/INJURY TECHNIQUE: Noncontrast axial images with sagittal and coronal reformations. Preliminary report provided by Tanya Acosta MD ([facility]). COMPARISON: None. FINDINGS: There are moderate degenerative changes of the mid cervical spine with moderate disc space narrowing at C5-6 and C6-7. There is moderate narrowing of the left C6-7 neural foramina. Findings are associated straightening and reversal of cervical lordosis (most likely chronic). Osseous structures and disc spaces are otherwise normal. No evidence of an acute process or fracture. IMPRESSION: 1. Moderate degenerative changes of the cervical spine 2. Straightening of the cervical lordosis most likely reflection of chronic degenerative changes. 3. No evidence of acute process or fracture All CT scans at this facility use dose modulation, iterative reconstruction, and/or weight-based dosing when appropriate to reduce radiation dose to as low as reasonably achievable.
--- NOTE | 2016-09-06 06:59 | DIAGNOSTIC IMAGING REPORT ---
PROCEDURE: CT CERVICAL SPINE W/O CONTRAST INDICATION: TRAUMA/INJURY TECHNIQUE: Noncontrast axial images with sagittal and coronal reformations. Preliminary report provided by Tanya Acosta MD ([facility]). COMPARISON: None. FINDINGS: There are moderate degenerative changes of the mid cervical spine with moderate disc space narrowing at C5-6 and C6-7. There is moderate narrowing of the left C6-7 neural foramina. Findings are associated straightening and reversal of cervical lordosis (most likely chronic). Osseous structures and disc spaces are otherwise normal. No evidence of an acute process or fracture. IMPRESSION: 1. Moderate degenerative changes of the cervical spine 2. Straightening of the cervical lordosis most likely reflection of chronic degenerative changes. 3. No evidence of acute process or fracture All CT scans at this facility use dose modulation, iterative reconstruction, and/or weight-based dosing when appropriate to reduce radiation dose to as low as reasonably achievable.
--- NOTE | 2016-09-08 16:32 | ED MAR SUMMARY ---
..... Medication Administration Record [facility] [address] [place] [address] Patient: MARIELA LOU Visit ID: [id number] 45y, F Weight: 58.9 kg Height/Length: 63 in BMI: 23 ALLERGIES: No Known Drug Allergy Start 23:11 09/05/2016 Ciro Tineo R.N., Stop 00:14 09/06/2016 Ciro Tineo R.N. Medication Administered: IV NS (SALINE), Dose: IV Fluids over 1 hour(s), Rate: 1000 mL/hr, Dispensed: 1000 mL bag, Site: #1 right AC. Medication Ordered: IV NS : initial bolus none -, then 1000 mL/hr (NOW). Start 00:35 09/06/2016 Ciro Tineo R.N., Stop 01:42 09/06/2016 Ciro Tineo R.N. Medication Administered: IV NS (SALINE), Dose: IV Fluids over 1 hour(s), With: MAGNESIUM SULFATE [IVP] 2 gm; MULTIVITAMIN [IVPB] 1 unit dose; POTASSIUM CHLORIDE [IVPB] 20 meq; THIAMINE [IVPB] 100 mg, Rate: 1000 mL/hr, Dispensed: 1150 mL bag, Site: #1 right AC. Medication Ordered: IV NS with Normal Saline 1 Liter, Magnesium Sulfate 2 gm/L, Multivitamin Concentrate Intravenous 1 amp/L, Potassium Chloride 20 meq/L, Thiamine HCl 100 mg/L: initial bolus 1000 mL (1000 mL/hr), then 150 mL/hr for 6h (NOW); Routine. Given 00:36 09/06/2016 Ciro Tineo R.N. Medication Administered: ZOFRAN [IVP] (ONDANSETRON HCL), Dose: 4 mg IVP over 2 minute(s), Site: #1 right AC. Medication Ordered: Zofran IV 4 mg (NOW). Given 00:38 09/06/2016 Ciro Tineo R.N. Medication Administered: ATIVAN [IVP] (LORAZEPAM), Dose: 1 mg IVP over 2 minute(s), Site: #1 right AC. Medication Ordered: Ativan IV 1 mg (NOW). Given 02:20 09/06/2016 Ciro Tineo R.N. Medication Administered: KCL [PO] (POTASSIUM CHLORIDE ER), Dose: 20 meq PO. Medication Ordered: KCl PO 20 meq (NOW). Start 03:09 09/06/2016 Ciro Tineo R.N., Stop 03:30 09/06/2016 Ciro Tineo R.N. Medication Administered: ROCEPHIN [IVPB] (CEFTRIAXONE SODIUM), Dose: 2 gm IVPB over 20 minute(s), Rate: 150 mL/hr, Dispensed: 50 mL bag, Site: #1 right AC. Medication Ordered: Rocephin IV 2 gm/50mL (NOW).
--- NOTE | 2016-09-08 16:32 | ED DISCHARGE INSTRUCTIONS ---
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 Hypokalemia due to alcohol and low magnesium. Alcohol withdrawal. Nasal fracture due to fall from seizure. INSTRUCTIONS No driving or operating machinery until released. Do not work for three days until better. No alcohol (Can never drink alcohol again.). Warnings: Further evaluation is necessary. SEDATIVE MEDICATION: You were given sedative medication during your visit. Do not drive or operate dangerous machinery. GENERAL WARNINGS: Return or contact your physician immediately if your condition worsens or changes unexpectedly, if not improving as expected, or if other problems arise. Your Current Medications: CONTINUE TAKING THE FOLLOWING MEDICATIONS: Citalopram Hydrobromide Oral. Wellbutrin Oral : 100 mg daily. Prescription Medications: Ativan 1 mg: take 1-2 orally every 6 hours as needed. Dispense fifteen (15). No refill. K-Dur 20 mEq: take 1 orally every 24 hours. Dispense five (5). No refills. OTC Medications: Mag-200 (available over the counter): take 2 orally daily for 5 days. Dispense ten (10). No refills. Follow-up: Follow up with your doctor in one week. Call for an appointment. Understanding of the discharge instructions verbalized by patient. Discharge instructions reviewed with and understanding was verbalized by spouse. ADDITIONAL INFORMATION Lorazepam Oral tablet What is this medicine? LORAZEPAM (sanju A ze ky) is a benzodiazepine. It is used to treat anxiety. How should I use this medicine? Take this medicine by mouth with a glass of water. Follow the directions on the prescription label. If it upsets your stomach, take it with food or milk. Take your medicine at regular intervals. Do not take it more often than directed. Do not stop taking except on the advice of your doctor or health home day care provider. Talk to your thermostat maker regarding the use of this medicine in children. Special care may be needed. What side effects may I notice from receiving this medicine? Side effects that you should report to your doctor or health home day care provider as soon as possible: changes in vision confusion depression mood changes, excitability or aggressive behavior movement difficulty, staggering or jerky movements muscle cramps restlessness weakness or tiredness Side effects that usually do not require medical attention (report to your doctor or health home day care provider if they continue or are bothersome): constipation or diarrhea difficulty sleeping, nightmares dizziness, drowsiness headache nausea, vomiting What may interact with this medicine? barbiturate medicines for inducing sleep or treating seizures, like phenobarbital clozapine medicines for depression, mental problems or psychiatric disturbances medicines for sleep phenytoin probenecid theophylline valproic acid What if I miss a dose? If you miss a dose, take it as soon as you can. If it is almost time for your next dose, take only that dose. Do not take double or extra doses. Where should I keep my medicine? Keep out of the reach of children. This medicine can be abused. Keep your medicine in a safe place to protect it from theft. Do not share this medicine with anyone. Selling or giving away this medicine is dangerous and against the law. Store at room temperature between 20 and 25 degrees C (68 and 77 degrees F). Protect from light. Keep container tightly closed. Throw away any unused medicine after the expiration date. What should I tell my health care provider before I take this medicine? They need to know if you have any of these conditions: alcohol or drug abuse problem bipolar disorder, depression, psychosis or other mental health condition glaucoma kidney or liver disease lung disease or breathing difficulties myasthenia gravis Parkinson's disease seizures or a history of seizures suicidal thoughts an unusual or allergic reaction to lorazepam, other benzodiazepines, foods, dyes, or preservatives or trying to get breast-feeding What should I watch for while using this medicine? Visit your doctor or health home day care provider for regular checks on your progress. Your body may become dependent on this medicine, ask your doctor or health home day care provider if you still need to take it. However, if you have been taking this medicine regularly for some time, do not suddenly stop taking it. You must gradually reduce the dose or you may get severe side effects. Ask your doctor or health home day care provider for advice before increasing or decreasing the dose. Even after you stop taking this medicine it can still affect your body for several days. You may get drowsy or dizzy. Do not drive, use machinery, or do anything that needs mental alertness until you know how this medicine affects you. To reduce the risk of dizzy and fainting spells, do not stand or sit up quickly, especially if you are an older patient. Alcohol may increase dizziness and drowsiness. Avoid alcoholic drinks. Do not treat yourself for coughs, colds or allergies without asking your doctor or health home day care provider for advice. Some ingredients can increase possible side effects. You have been given the following additional information: Lorazepam Oral tablet No driving or operating machinery until released. Do not work for three days until better. (Electronically signed by Dixon Heath MD 09/08/2016 16:31)
--- NOTE | 2016-09-08 16:32 | ED MED RECONCILIATION SUMMARY ---
Patient: MARIELA LOU Medication Reconciliation Report [facility] VisitID: [id number] [place] [address] 45y, F Registration Date/Time: 09/05/2016 Weight: 58.9 kg Height/Length: 63 in. BMI: 23.0 ALLERGIES: No Known Drug Allergy The patient's Home Medications are listed below: CONTINUE TAKING THE FOLLOWING MEDICATIONS: Citalopram Hydrobromide Oral Wellbutrin Oral 100 mg, daily The source(s) of the original Home Medication information: patient The following Medications were given to the patient in the Emergency Department: IV NS IV Fluids bolus 0, then 1000 mL/hr, administered: 09/05/2016 11:11:00 PM IV NS IV Fluids bolus 0, then 1000 mL/hr with Magnesium Sulfate [IVP] 2 gm, Multivitamin [IVPB] 1 unit dose, Potassium Chloride [IVPB] 20 meq and Thiamine [IVPB] 100 mg, administered: 09/06/2016 12:35:00 AM Zofran [IVP] IVP 4 mg, administered: 09/06/2016 12:36:00 AM Ativan [IVP] IVP 1 mg, administered: 09/06/2016 12:38:00 AM KCL [PO] PO 20 meq, administered: 09/06/2016 2:20:00 AM Rocephin [IVPB] IVPB bolus 0, then 2 gm 150 mL/hr, administered: 09/06/2016 3:09:00 AM The following Medications were prescribed to the patient: Ativan 1 mg: take 1-2 orally every 6 hours as needed. Dispense fifteen (15). No refill. -- Dixon Heath MD K-Dur 20 mEq: take 1 orally every 24 hours. Dispense five (5). No refills. -- Dixon Heath MD Mag-200 (available over the counter): take 2 orally daily for 5 days. Dispense ten (10). No refills. -- Dixon Heath MD
--- NOTE | 2016-09-08 16:32 | ED MED RECONCILIATION SUMMARY ---
Patient: MARIELA LOU Medication Reconciliation Report [facility] VisitID: [id number] [place] [address] 45y, F Registration Date/Time: 09/05/2016 Weight: 58.9 kg Height/Length: 63 in. BMI: 23.0 ALLERGIES: No Known Drug Allergy The patient's Home Medications are listed below: CONTINUE TAKING THE FOLLOWING MEDICATIONS: Citalopram Hydrobromide Oral Wellbutrin Oral 100 mg, daily The source(s) of the original Home Medication information: patient The following Medications were given to the patient in the Emergency Department: IV NS IV Fluids bolus 0, then 1000 mL/hr, administered: 09/05/2016 11:11:00 PM IV NS IV Fluids bolus 0, then 1000 mL/hr with Magnesium Sulfate [IVP] 2 gm, Multivitamin [IVPB] 1 unit dose, Potassium Chloride [IVPB] 20 meq and Thiamine [IVPB] 100 mg, administered: 09/06/2016 12:35:00 AM Zofran [IVP] IVP 4 mg, administered: 09/06/2016 12:36:00 AM Ativan [IVP] IVP 1 mg, administered: 09/06/2016 12:38:00 AM KCL [PO] PO 20 meq, administered: 09/06/2016 2:20:00 AM Rocephin [IVPB] IVPB bolus 0, then 2 gm 150 mL/hr, administered: 09/06/2016 3:09:00 AM The following Medications were prescribed to the patient: Ativan 1 mg: take 1-2 orally every 6 hours as needed. Dispense fifteen (15). No refill. -- Dixon Heath MD K-Dur 20 mEq: take 1 orally every 24 hours. Dispense five (5). No refills. -- Dixon Heath MD Mag-200 (available over the counter): take 2 orally daily for 5 days. Dispense ten (10). No refills. -- Dixon Heath MD
--- NOTE | 2016-09-08 16:32 | ED DISCHARGE INSTRUCTIONS ---
Patient: MARIELA LOU General Instructions [facility] VisitID: [id number] [place] [address] 45y, F Registration Date/Time: 09/05/2016 Seizure due to low magnesium and alcohol withdrawal. Hypokalemia due to alcohol and low magnesium. Alcohol withdrawal. Nasal fracture due to fall from seizure. INSTRUCTIONS No driving or operating machinery until released. Do not work for three days until better. No alcohol (Can never drink alcohol again.). Warnings: Further evaluation is necessary. SEDATIVE MEDICATION: You were given sedative medication during your visit. Do not drive or operate dangerous machinery. GENERAL WARNINGS: Return or contact your physician immediately if your condition worsens or changes unexpectedly, if not improving as expected, or if other problems arise. Your Current Medications: CONTINUE TAKING THE FOLLOWING MEDICATIONS: Citalopram Hydrobromide Oral. Wellbutrin Oral : 100 mg daily. Prescription Medications: Ativan 1 mg: take 1-2 orally every 6 hours as needed. Dispense fifteen (15). No refill. K-Dur 20 mEq: take 1 orally every 24 hours. Dispense five (5). No refills. OTC Medications: Mag-200 (available over the counter): take 2 orally daily for 5 days. Dispense ten (10). No refills. Follow-up: Follow up with your doctor in one week. Call for an appointment. Understanding of the discharge instructions verbalized by patient. Discharge instructions reviewed with and understanding was verbalized by spouse. ADDITIONAL INFORMATION Lorazepam Oral tablet What is this medicine? LORAZEPAM (sanju A ze ky) is a benzodiazepine. It is used to treat anxiety. How should I use this medicine? Take this medicine by mouth with a glass of water. Follow the directions on the prescription label. If it upsets your stomach, take it with food or milk. Take your medicine at regular intervals. Do not take it more often than directed. Do not stop taking except on the advice of your doctor or health health care social worker. Talk to your railroad crossing protection maintainer regarding the use of this medicine in children. Special care may be needed. What side effects may I notice from receiving this medicine? Side effects that you should report to your doctor or health health care social worker as soon as possible: changes in vision confusion depression mood changes, excitability or aggressive behavior movement difficulty, staggering or jerky movements muscle cramps restlessness weakness or tiredness Side effects that usually do not require medical attention (report to your doctor or health health care social worker if they continue or are bothersome): constipation or diarrhea difficulty sleeping, nightmares dizziness, drowsiness headache nausea, vomiting What may interact with this medicine? barbiturate medicines for inducing sleep or treating seizures, like phenobarbital clozapine medicines for depression, mental problems or psychiatric disturbances medicines for sleep phenytoin probenecid theophylline valproic acid What if I miss a dose? If you miss a dose, take it as soon as you can. If it is almost time for your next dose, take only that dose. Do not take double or extra doses. Where should I keep my medicine? Keep out of the reach of children. This medicine can be abused. Keep your medicine in a safe place to protect it from theft. Do not share this medicine with anyone. Selling or giving away this medicine is dangerous and against the law. Store at room temperature between 20 and 25 degrees C (68 and 77 degrees F). Protect from light. Keep container tightly closed. Throw away any unused medicine after the expiration date. What should I tell my health care provider before I take this medicine? They need to know if you have any of these conditions: alcohol or drug abuse problem bipolar disorder, depression, psychosis or other mental health condition glaucoma kidney or liver disease lung disease or breathing difficulties myasthenia gravis Parkinson's disease seizures or a history of seizures suicidal thoughts an unusual or allergic reaction to lorazepam, other benzodiazepines, foods, dyes, or preservatives or trying to get breast-feeding What should I watch for while using this medicine? Visit your doctor or health health care social worker for regular checks on your progress. Your body may become dependent on this medicine, ask your doctor or health health care social worker if you still need to take it. However, if you have been taking this medicine regularly for some time, do not suddenly stop taking it. You must gradually reduce the dose or you may get severe side effects. Ask your doctor or health health care social worker for advice before increasing or decreasing the dose. Even after you stop taking this medicine it can still affect your body for several days. You may get drowsy or dizzy. Do not drive, use machinery, or do anything that needs mental alertness until you know how this medicine affects you. To reduce the risk of dizzy and fainting spells, do not stand or sit up quickly, especially if you are an older patient. Alcohol may increase dizziness and drowsiness. Avoid alcoholic drinks. Do not treat yourself for coughs, colds or allergies without asking your doctor or health health care social worker for advice. Some ingredients can increase possible side effects. You have been given the following additional information: Lorazepam Oral tablet No driving or operating machinery until released. Do not work for three days until better. (Electronically signed by Dixon Heath MD 09/08/2016 16:31)
--- NOTE | 2016-09-08 16:32 | ED MAR SUMMARY ---
..... Medication Administration Record [facility] [address] [facility] [facility] [place] [address] Patient: MARIELA LOU Visit ID: [id number] 45y, F Weight: 58.9 kg Height/Length: 63 in BMI: 23 ALLERGIES: No Known Drug Allergy Start 23:11 09/05/2016 Ciro Tineo R.N., Stop 00:14 09/06/2016 Ciro Tineo R.N. Medication Administered: IV NS (SALINE), Dose: IV Fluids over 1 hour(s), Rate: 1000 mL/hr, Dispensed: 1000 mL bag, Site: #1 right AC. Medication Ordered: IV NS : initial bolus none -, then 1000 mL/hr (NOW). Start 00:35 09/06/2016 Ciro Tineo R.N., Stop 01:42 09/06/2016 Ciro Tineo R.N. Medication Administered: IV NS (SALINE), Dose: IV Fluids over 1 hour(s), With: MAGNESIUM SULFATE [IVP] 2 gm; MULTIVITAMIN [IVPB] 1 unit dose; POTASSIUM CHLORIDE [IVPB] 20 meq; THIAMINE [IVPB] 100 mg, Rate: 1000 mL/hr, Dispensed: 1150 mL bag, Site: #1 right AC. Medication Ordered: IV NS with Normal Saline 1 Liter, Magnesium Sulfate 2 gm/L, Multivitamin Concentrate Intravenous 1 amp/L, Potassium Chloride 20 meq/L, Thiamine HCl 100 mg/L: initial bolus 1000 mL (1000 mL/hr), then 150 mL/hr for 6h (NOW); Routine. Given 00:36 09/06/2016 Ciro Tineo R.N. Medication Administered: ZOFRAN [IVP] (ONDANSETRON HCL), Dose: 4 mg IVP over 2 minute(s), Site: #1 right AC. Medication Ordered: Zofran IV 4 mg (NOW). Given 00:38 09/06/2016 Ciro Tineo R.N. Medication Administered: ATIVAN [IVP] (LORAZEPAM), Dose: 1 mg IVP over 2 minute(s), Site: #1 right AC. Medication Ordered: Ativan IV 1 mg (NOW). Given 02:20 09/06/2016 Ciro Tineo R.N. Medication Administered: KCL [PO] (POTASSIUM CHLORIDE ER), Dose: 20 meq PO. Medication Ordered: KCl PO 20 meq (NOW). Start 03:09 09/06/2016 Ciro Tineo R.N., Stop 03:30 09/06/2016 Ciro Tineo R.N. Medication Administered: ROCEPHIN [IVPB] (CEFTRIAXONE SODIUM), Dose: 2 gm IVPB over 20 minute(s), Rate: 150 mL/hr, Dispensed: 50 mL bag, Site: #1 right AC. Medication Ordered: Rocephin IV 2 gm/50mL (NOW).
== END 2016-09-06 03:45 | disposition home or self-care (01) ==
LOC: ED SRH 23:03
DX: F10.239 Alcohol dependence with withdrawal, unspecified (principal); R56.9 Unspecified convulsions; E87.6 Hypokalemia; S02.2XXA Fracture of nasal bones, initial encounter for closed fracture; W19.XXXA Unspecified fall, initial encounter; Y93.9 Activity, unspecified; Y99.9 Unspecified external cause status; Y92.9 Unspecified place or not applicable
CPT/HCPCS: 81460; 90004; 90047; 90100; 90469; 90616; 92010; 92610; 92720; 92750; 92760; 92761; 92762; 92763; 92764; 92765; 92766; 92767; 93070; 93140; 95059

== ENCOUNTER 2016-11-11 14:37 | Emergency (ER) | payer BC ==
--- NOTE | 2016-11-11 15:32 | DIAGNOSTIC IMAGING REPORT ---
PROCEDURE: XR CHEST 1 VIEW INDICATION: CHEST PAIN TECHNIQUE: Portable AP view 03:12 p.m. COMPARISON: None. FINDINGS: Lungs are clear. Heart and mediastinum are normal. Thorax is normal. IMPRESSION: 1. Negative chest.
--- NOTE | 2016-11-11 17:16 | DIAGNOSTIC IMAGING REPORT ---
PROCEDURE: US VENOUS - BILATERAL EXT INDICATION: SWELLING TECHNIQUE: Duplex sonography of the deep venous system in both lower extremities was performed. Compression and augmentation techniques were used. COMPARISON: None. FINDINGS: Each interrogated segment of deep vein from the common femoral vein into the calf veins demonstrates normal compressibility, augmentation and/or color Doppler flow without filling defect. No evidence of significant soft-tissue edema, soft-tissue mass or cyst. IMPRESSION: 1. No deep venous thrombosis in either lower extremity.
--- NOTE | 2016-11-11 17:35 | DIAGNOSTIC IMAGING REPORT ---
PROCEDURE: CTA THORAX WITH CONTRAST INDICATION: SHORTNESS OF BREATH TECHNIQUE: 124 ml of Isovue 370 was injected intravenously and axial images were obtained of the entire thorax with 3D sagittal and coronal MIP reconstructions. The patient was scanned twice. COMPARISON: Chest x-ray 11/11/2016. FINDINGS: No evidence of pulmonary emboli. No adenopathy or effusion. Normal lung parenchyma. Normal aorta without dissection or aneurysm. Normal heart size. Hepatic steatosis. Mild degenerative changes of the spine. IMPRESSION: 1. No evidence of pulmonary emboli, aortic dissection or aneurysm 2. Hepatic steatosis 3. Results discussed with Dr. Aranda
--- NOTE | 2016-11-11 18:18 | ED ORDER SUMMARY ---
..... Patient: MARIELA LOU OrderSheet [facility] VisitID: [id number] [address] [place] [address] 45y, F Registration Date/Time: 11/11/2016 ORDER SHEET Weight: 65.7 kg (stated) Allergies: No Known Drug Allergy GENERAL ORDERS: [place] (Continuous) (Croup, Respiratory Distress) (14:58 11/11/2016 JBoardley R.N. per protocol) (14:59 JBoardley R.N.) Chest 1V Urgent (14:58 11/11/2016 JBoardley R.N. per protocol) (Ack 15:04 LNations ER Tech1) (15:06 LNations ER Tech1) Cardiac Panel Stat (14:59 11/11/2016 JBoardley R.N. per protocol) (Ack 15:04 LNations ER Tech1) (15:07 JBoardley R.N.) Ethyl Alcohol Urgent (14:59 11/11/2016 JBoardley R.N. per protocol) (Ack 15:04 LNations ER Tech1) (15:07 JBoardley R.N.) Oxygen (2 L/min) (NC) (14:59 11/11/2016 JBoardley R.N. per protocol) (14:59 JBoardley R.N.) Pulse oximeter (14:59 11/11/2016 JBoardley R.N. per protocol) (14:59 JBoardley R.N.) EKG - ER Stat (14:59 11/11/2016 JBoardley R.N. per protocol) (14:59 JBoardley R.N.) BNP Urgent (15:11 11/11/2016 Blake PEREZ) (Ack 15:14 LNations ER Tech1) (15:22 JBoardley R.N.) Amylase Urgent (15:11 11/11/2016 Blake PEREZ) (Ack 15:14 LNations ER Tech1) (15:22 JBoardley R.N.) Lipase Urgent (15:11 11/11/2016 Blake PEREZ) (Ack 15:14 LNations ER Tech1) (15:22 JBoardley R.N.) D-Dimer Urgent (15:11 11/11/2016 Blake PEREZ) (Ack 15:14 LNations ER Tech1) (15:22 JBoardley R.N.) UA-Culture if indicated Urgent (15:46 11/11/2016 JBoardley R.N. per protocol) (Ack 15:47 LNations ER Tech1) (15:50 JBoardley R.N.) Urine Drug Screen Urgent (15:56 11/11/2016 Blake PEREZ) (Ack 16:07 LNations ER Tech1) (16:14 JBoardley R.N.) US Venous Bilat Urgent (16:01 11/11/2016 Blake PEREZ) (Ack 16:07 LNations ER Tech1) (16:14 JBoardley R.N.) CTA Thorax w Cont (No) (See report) Urgent (16:02 11/11/2016 Blake PEREZ) (Ack 16:07 LNations ER Tech1) (16:58 JBoardley R.N.) MEDICATION ORDERS: Phenergan IV 25 mg (HIGH ALERT MEDICATION, NOW) (16:00 11/11/2016 Blake PEREZ) (Ack 16:01 JBoardley R.N.) (16:10 JBoardley R.N.) IV FLUIDS: Zofran IV 4 mg (NOW) (14:58 11/11/2016 JBoardley R.N. per protocol) (15:00 JBoardley R.N.) IV NS : initial bolus none -, then 1000 mL/hr for X1 (NOW) (14:58 11/11/2016 JBoardley R.N. per protocol) (15:00 JBoardley R.N.) IV NS : initial bolus none -, then 1000 mL/hr for X1 (NOW) (15:33 11/11/2016 JBoardley R.N. per protocol) (15:35 JBoardley R.N.) Zofran IV 4 mg (NOW) (15:33 11/11/2016 JBoardley R.N. per protocol) (15:33 JBoardley R.N.) ORDER SHEET NOTES: [Electronically signed by Ochoa Maglalanes R.N. (:11/11/2016)] [Electronically signed by Fazal Aranda MD (21:33 11/12/2016)] [Electronically locked/signed by Ochoa Magallanes R.N. (:11/11/2016)]
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
--- NOTE | 2016-11-11 18:18 | ED ORDER SUMMARY ---
..... Patient: MARIELA LOU OrderSheet [facility] VisitID: [id number] [address] [place] [address] 45y, F Registration Date/Time: 11/11/2016 ORDER SHEET Weight: 65.7 kg (stated) Allergies: No Known Drug Allergy GENERAL ORDERS: Training Consultant (Continuous) (Croup, Respiratory Distress) (14:58 11/11/2016 JBoardley R.N. per protocol) (14:59 JBoardley R.N.) Chest 1V Urgent (14:58 11/11/2016 JBoardley R.N. per protocol) (Ack 15:04 LNations ER Tech1) (15:06 LNations ER Tech1) Cardiac Panel Stat (14:59 11/11/2016 JBoardley R.N. per protocol) (Ack 15:04 LNations ER Tech1) (15:07 JBoardley R.N.) Ethyl Alcohol Urgent (14:59 11/11/2016 JBoardley R.N. per protocol) (Ack 15:04 LNations ER Tech1) (15:07 JBoardley R.N.) Oxygen (2 L/min) (NC) (14:59 11/11/2016 JBoardley R.N. per protocol) (14:59 JBoardley R.N.) Pulse oximeter (14:59 11/11/2016 JBoardley R.N. per protocol) (14:59 JBoardley R.N.) EKG - ER Stat (14:59 11/11/2016 JBoardley R.N. per protocol) (14:59 JBoardley R.N.) BNP Urgent (15:11 11/11/2016 Blake PEREZ) (Ack 15:14 LNations ER Tech1) (15:22 JBoardley R.N.) Amylase Urgent (15:11 11/11/2016 Blake PEREZ) (Ack 15:14 LNations ER Tech1) (15:22 JBoardley R.N.) Lipase Urgent (15:11 11/11/2016 Blake PEREZ) (Ack 15:14 LNations ER Tech1) (15:22 JBoardley R.N.) D-Dimer Urgent (15:11 11/11/2016 Blake PEREZ) (Ack 15:14 LNations ER Tech1) (15:22 JBoardley R.N.) UA-Culture if indicated Urgent (15:46 11/11/2016 JBoardley R.N. per protocol) (Ack 15:47 LNations ER Tech1) (15:50 JBoardley R.N.) Urine Drug Screen Urgent (15:56 11/11/2016 Blake PEREZ) (Ack 16:07 LNations ER Tech1) (16:14 JBoardley R.N.) US Venous Bilat Urgent (16:01 11/11/2016 Balke PEREZ) (Ack 16:07 LNations ER Tech1) (16:14 JBoardley R.N.) CTA Thorax w Cont (No) (See report) Urgent (16:02 11/11/2016 Blake PEREZ) (Ack 16:07 LNations ER Tech1) (16:58 JBoardley R.N.) MEDICATION ORDERS: Phenergan IV 25 mg (HIGH ALERT MEDICATION, NOW) (16:00 11/11/2016 Blake PEREZ) (Ack 16:01 JBoardley R.N.) (16:10 JBoardley R.N.) IV FLUIDS: Zofran IV 4 mg (NOW) (14:58 11/11/2016 JBoardley R.N. per protocol) (15:00 JBoardley R.N.) IV NS : initial bolus none -, then 1000 mL/hr for X1 (NOW) (14:58 11/11/2016 JBoardley R.N. per protocol) (15:00 JBoardley R.N.) IV NS : initial bolus none -, then 1000 mL/hr for X1 (NOW) (15:33 11/11/2016 JBoardley R.N. per protocol) (15:35 JBoardley R.N.) Zofran IV 4 mg (NOW) (15:33 11/11/2016 JBoardley R.N. per protocol) (15:33 JBoardley R.N.) ORDER SHEET NOTES: [Electronically signed by Ochoa Magallanes R.N. (:11/11/2016)] [Electronically signed by Fazal Aranda MD (21:33 11/12/2016)] [Electronically locked/signed by Ochoa Magallanes R.N. (:11/11/2016)]
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
--- NOTE | 2016-11-12 21:34 | ED MED RECONCILIATION SUMMARY ---
Patient: MARIELA LOU Medication Reconciliation Report [facility] VisitID: [id number] [address] [place] [address] 45y, F Registration Date/Time: 11/11/2016 Weight: 65.7 kg Height/Length: 63 in. BMI: 25.7 ALLERGIES: No Known Drug Allergy The patient's Home Medications are listed below: THE FOLLOWING MEDICATIONS NEED TO BE RECONCILED: BuPROPion HCl Oral, last dose 2 weeks ago Citalopram Hydrobromide Oral, last dose 2 weeks ago Metoprolol, last dose 2 weeks ago Non Complaint with meds Wellbutrin Oral 100 mg, daily, last dose 2 weeks ago The source(s) of the original Home Medication information: patient The following Medications were given to the patient in the Emergency Department: Zofran [IVP] IVP 4 mg, administered: 11/11/2016 3:00:00 PM IV NS IV Fluids bolus 0, then 1000 mL/hr, administered: 11/11/2016 2:50:00 PM Zofran [IVP] IVP 4 mg, administered: 11/11/2016 3:33:00 PM IV NS IV Fluids bolus 0, then 1000 mL/hr, administered: 11/11/2016 3:30:00 PM PHENERGAN [IVP] IVP 25 mg, administered: 11/11/2016 4:10:00 PM The following Medications were prescribed to the patient: Zofran 4 mg: Take 1 orally every six hours as needed for nausea/vomiting. Dispense ten (10). No refills. Substitution is permissible. -- Fazal Aranda MD Phenergan suppositories 25 mg: Insert 1 rectally every 4 to 6 hours as needed for nausea or vomiting. Dispense ten (10). No refills. Substitution is permissible. -- Fazal Aranda MD
--- NOTE | 2016-11-12 21:34 | ED MED RECONCILIATION SUMMARY ---
Patient: MARIELA LOU Medication Reconciliation Report [facility] VisitID: [id number] [address] [place] [address] 45y, F Registration Date/Time: 11/11/2016 Weight: 65.7 kg Height/Length: 63 in. BMI: 25.7 ALLERGIES: No Known Drug Allergy The patient's Home Medications are listed below: THE FOLLOWING MEDICATIONS NEED TO BE RECONCILED: BuPROPion HCl Oral, last dose 2 weeks ago Citalopram Hydrobromide Oral, last dose 2 weeks ago Metoprolol, last dose 2 weeks ago Non Complaint with meds Wellbutrin Oral 100 mg, daily, last dose 2 weeks ago The source(s) of the original Home Medication information: patient The following Medications were given to the patient in the Emergency Department: Zofran [IVP] IVP 4 mg, administered: 11/11/2016 3:00:00 PM IV NS IV Fluids bolus 0, then 1000 mL/hr, administered: 11/11/2016 2:50:00 PM Zofran [IVP] IVP 4 mg, administered: 11/11/2016 3:33:00 PM IV NS IV Fluids bolus 0, then 1000 mL/hr, administered: 11/11/2016 3:30:00 PM PHENERGAN [IVP] IVP 25 mg, administered: 11/11/2016 4:10:00 PM The following Medications were prescribed to the patient: Zofran 4 mg: Take 1 orally every six hours as needed for nausea/vomiting. Dispense ten (10). No refills. Substitution is permissible. -- Fazal Aranda MD Phenergan suppositories 25 mg: Insert 1 rectally every 4 to 6 hours as needed for nausea or vomiting. Dispense ten (10). No refills. Substitution is permissible. -- Fazal Aranda MD
--- NOTE | 2016-11-12 21:34 | ED MAR SUMMARY ---
..... Medication Administration Record [facility] [address] [place] [address] Patient: MARIELA LOU Visit ID: [id number] 45y, F Weight: 65.7 kg Height/Length: 63 in BMI: 25.7 ALLERGIES: No Known Drug Allergy Start 14:50 11/11/2016 Ohcoa Magallanes R.N., Stop 15:28 11/11/2016 Ochoa Magallanes R.N. Medication Administered: IV NS (SALINE), Dose: IV Fluids over 1 hour(s), Rate: 1000 mL/hr, Dispensed: 1000 mL bag, Site: #1. Medication Ordered: IV NS : initial bolus none -, then 1000 mL/hr for X1 (NOW). Given 15:00 11/11/2016 Ochoa Magallanes R.N. Medication Administered: ZOFRAN [IVP] (ONDANSETRON HCL), Dose: 4 mg IVP over 2 minute(s), Site: #1 right AC. Medication Ordered: Zofran IV 4 mg (NOW). Start 15:30 11/11/2016 Ochoa Magallanes R.N., Stop 16:22 11/11/2016 Ochoa Magallanes R.N. Medication Administered: IV NS (SALINE), Dose: IV Fluids over 1 hour(s), Rate: 1000 mL/hr, Dispensed: 1000 mL bag, Site: #1 right AC. Medication Ordered: IV NS : initial bolus none -, then 1000 mL/hr for X1 (NOW). Given 15:33 11/11/2016 Ochoa Magallanes R.N. Medication Administered: ZOFRAN [IVP] (ONDANSETRON HCL), Dose: 4 mg IVP over 2 minute(s), Site: #1 right AC. Medication Ordered: Zofran IV 4 mg (NOW). Given 16:10 11/11/2016 Ochoa Magallanes R.N. Medication Administered: PHENERGAN [IVP] (PROMETHAZINE HCL), Dose: 25 mg IVP over 2 minute(s), Site: #1 right AC. Medication Ordered: Phenergan IV 25 mg (HIGH ALERT MEDICATION, NOW).
--- NOTE | 2016-11-12 21:34 | ED DISCHARGE INSTRUCTIONS ---
Patient: MARIELA LOU General Instructions [facility] VisitID: [id number] [address] [place] [address] 45y, F Registration Date/Time: 11/11/2016 Nausea with vomiting. Substance abuse- alcohol, marijuana. Acute alcoholic gastritis Gastroenteritis. INSTRUCTIONS No driving or operating machinery while taking medication. Sedative medication was given during your visit. No alcohol. Warnings: Further evaluation is necessary. GENERAL WARNINGS: Return or contact your physician immediately if your condition worsens or changes unexpectedly, if not improving as expected, or if other problems arise. Prescription Medications: Zofran 4 mg: Take 1 orally every six hours as needed for nausea/vomiting. Dispense ten (10). No refills. Substitution is permissible. Phenergan suppositories 25 mg: Insert 1 rectally every 4 to 6 hours as needed for nausea or vomiting. Dispense ten (10). No refills. Substitution is permissible. Understanding of the discharge instructions verbalized by patient. Follow-up with: Richy Headley MD, [facility], , [facility], [address] [place] [address] Follow up tomorrow. Call for an appointment. ADDITIONAL INFORMATION Alcohol Intoxication Alcohol intoxication occurs when you drink alcohol faster than your liver can remove it from your system. Alcohol intoxication affects your judgment and coordination. Very high blood alcohol levels can cause coma, very slow breathing and even . If you drink alcohol every day, this may gradually cause permanent damage to your liver, brain, heart, pancreas and other organs. Alcohol use during may cause permanent damage to the growing baby. Home Care: Do not drink any more alcohol. DO NOT DRIVE until all effects of the alcohol have worn off. Get lots of rest over the next few days. Drink plenty of water and other non-alcoholic liquids. Try to eat regular meals. If you have been drinking heavily on a daily basis, you may go through alcohol withdrawl. This is also called the shakes or DTs. The usual symptoms last 3 to 4 days and may include nervousness, shakiness, nausea, sweating or sleeplessness. During this time, it is best that you stay with family or friends who can help and support you. You can also admit yourself to a residential detox program. If your symptoms are severe, contact your doctor for medicines to help. Follow Up: If alcohol is causing a problem in your life, these and other organizations can help you: Alcoholics Anonymous offers support through a self-help fellowship. There are no dues or fees. See the Yellow Pages and call for time and place of meetings. www.aa.org Cindy offers support to families of alcohol users. 289.626.3210 www.al-poly.org [employer] [facility] [place] On Alcoholism And Drug Dependence 242-110-0960 www.ncadd.org There are also inpatient or residential alcohol detox programs. Check the Internet or phonebook Yellow Pages under Drug Abuse & Treatment Centers. Get Prompt Medical Attention if any of the following occur: there) Marijuana Abuse Marijuana is the most widely used illegal drug in the [place]. It is called by various names such as pot, weed, blunts, grass, reefer, ganja, hash, hashish. It is usually smoked but can be mixed with foods or brewed as a tea. It is sometimes sold with PCP (George Dust) or amphetamine mixed in it. These drugs can cause other harmful side effects. Marijuana can cause the following effects: Changes in mood (stimulated, happy, drowsy, depressed, paranoid) Hallucinations Increased heart rate and blood pressure Increased appetite Time distortion, difficulty concentrating, impaired memory Lung damage (similar to cigarettes with chronic cough, wheezing, frequent colds and bronchitis) You can become psychologically dependent on marijuana. That means the craving to use the drug is emotional or psychological rather than due to physical withdrawal. Is Marijuana Running Your Life? Here are some of the signs: Relying on marijuana to feel good, forget problems, deal with stress or to relax Wanting to be alone most of the time or only with others who use drugs Losing interest in things that used to be important Changes in school or job performance or attendance Spending a lot of time thinking about how to get marijuana Stealing or selling your things so you can buy marijuana Unable to stop using even though you may want to quit Increasing anxiety, anger,or depression Sleeping too much, changes in eating habits (weight loss or gain) Needing to use more to get the same effect Home Care Once you have become addicted to any drug, quitting is hard to do. Most people find they can't quit without help. So, dont try to do this alone. Talk to someone you trust who can support you. Seek professional help. Avoid people and places where drugs are used. That only increases the temptation to use. Follow Up with your doctor or as advised by our staff. For more information or a referral to a treatment center in your area, contact: Your local mental health center or the National Alcohol and Substance Abuse Information Center (670)-011-5177 www.addictioncareTEVIZZ.[employer] [facility] [place] on Alcoholism and Drug Dependence 226-144-CKUU www.ncadd.org Marijuana Anonymous 078-247-1064 www.marijuana-anonymous.org Get Prompt Medical Attention if any of the following occur: You feel extreme depression, fear, anxiety, or anger toward yourself or others You feel out of control You feel that you may try to harm yourself or another Gastritis (Adult) Gastritis is an irritation of the stomach lining. It can be acute (recent) or chronic (lasting a long time). Gastritis can be caused by overuse of alcohol or anti-inflammatory medications (such as aspirin, ibuprofen, or prednisone). H pyloriinfection can also cause chronic gastritis. Gastritis can cause a dull ache or burning pain in the upper abdomen. Other symptoms include nausea, vomiting, loss of appetite, and belching or bloating. Blood in the vomit or stools (red or black) is a sign of bleeding in the stomach. This requires immediate medical attention. Tests for H pyloriare used to screen for bacterial infection. If no infection is found, gastritis can be treated by stopping the cause and treating with antacids plus an acid mounika medication. If H pylori infection is found, antibiotics will also be prescribed. Persons 55 years and older may undergo other tests before treatment is started. Two common tests are used to evaluate your symptoms. An upper GI series is an x-ray taken after you drink a chalky liquid called barium. This coats the stomach and allows the doctor to view any problems in the stomach on the x-ray. Another test is called endoscopy, during which a long thin tube called an endoscope is passed down your throat to the stomach. A camera at the end of the scope allows the doctor to view inside the stomach to check the cause of your symptoms. Home Care: Take the prescribed acid mounika medication for the full course of treatment even if you begin to feel better sooner. This medication can take up to several days to fully control your symptoms. If you cant afford the prescribed medication, you can try irof-iyb-jglotys acid blockers, such as Pepcid AC, Tagamet, Zantac, or Aciphex. If these do not relieve your symptoms, a stronger acid-mounika can be tried, such as Prilosec OTC. If you have been prescribed an antibiotic to treat H pyloriinfection, finish the full course of medication. Do so even if you begin to feel better sooner. If you stop the medication too soon, the infection can return and be harder to treat. You can use antacids, such as Tums, Rolaids, Mylanta, or Maalox, for pain. This will be useful the first few days after starting acid blockers when the blockers havent started working yet. Follow the directions on the label. Liquid antacids may work better than tablets. Note that antacids can interfere with absorption of certain medications. Specifically, do not take Tagamet (cimetidine), Zantac (ranitidine), or Carafate (sucralfate) within 1 hour of taking an antacid. Talk with your pharmacist if you have any questions. Symptoms of gastritis can be worsened by certain foods. Limit or avoid fatty, fried, and spicy foods, as well as coffee, chocolate, mint, and foods with high acid content such as tomatoes and citrus fruit and juices (orange, grapefruit, lemon). Avoid alcohol, caffeine, and tobacco, which can delay healing. Avoid aspirin and anti-inflammatory medications such as ibuprofen (Advil, Motrin) and naproxen (Naprosyn, Aleve). Acetaminophen (Tylenol) is safe to use. Do not take more than the amount listed on the label. Follow Up with your doctor, or as advised by our staff. Further testing may be needed. If you do not improve over the next 4 days, contact your doctor. If you had an x-ray, CT scan, or ECG (electrocardiogram), it will be reviewed by a specialist. Youll be notified of any new findings that affect your care. Get Prompt Medical Attention if any of the following occur: Stomach pain gets worse or moves to the lower right abdomen (appendix area) Chest pain appears or gets worse, or spreads to the back, neck, shoulder, or arm Frequent vomiting (cant keep down liquids) Blood in the stool or vomit (red or black in color) Feeling weak or dizzy, fainting, or trouble breathing Fever of 100.4F (38C) or higher, or as directed by your healthcare provider Viral Gastroenteritis (6Yr-Adult) Gastroenteritis is another name for thestomach flu.It is most often caused by a virus that affects the stomach and intestinal tract. Symptoms include stomach cramping and fever, vomiting and/or diarrhea, and can last from 2 to 7 days. The danger from repeated vomiting or diarrhea is dehydration. This is the loss of too much water and minerals from the body. When this occurs, body fluids must be replaced. Antibiotics are not effective for this illness, but simple home treatment will be helpful. Home Care If symptoms are severe, rest at home for the next 24 hours. Avoid tobacco, caffeine, and alcohol use, which can worsen symptoms. Acetaminophen (Tylenol) or ibuprofen (Motrin, Advil) may be usedfor fever or pain unless another medication was prescribed. NOTE: If you have chronic liver or kidney disease or ever had a stomach ulcer or GI bleeding, talk with your doctor before using these medicines. Aspirin should never be used in anyone under 18 years of age who is ill with a fever. It may cause severe liver damage. If medicines for diarrhea or vomiting were prescribed, be sure they are takenonly as directed. If vomiting, drink small amounts of clear fluids (such as water, sports drinks, clear sodas) at frequent intervals to prevent dehydration. Start with 1 to 2 tablespoons every 10 minutes. Once vomiting stops, follow these guidelines: During The First 12 To 24 Hours follow the diet below: Beverages: Sport drinks like Gatorade, soft drinks without caffeine; enid matthias, mineral water (plain or flavored), decaffeinated tea and coffee. Soups: Clear broth, consomm and bouillon Desserts: Plain gelatin (Jell-O), Popsicles and fruit juice bars. During The Next 24 Hours you may add the following to the above: Hot cereal, plain toast, bread, rolls, crackers Plain noodles, rice, mashed potatoes, chicken noodle or rice soup Unsweetened canned fruit (avoid pineapple), bananas Limit fat intake to less than 15 grams per day by avoiding margarine, butter, oils, mayonnaise, sauces, gravies, fried foods, peanut butter, meat, poultry, and fish. Limit fiber; avoid raw or cooked vegetables, fresh fruits (except bananas), and bran cereals. Limit caffeine and chocolate. Do not use spices or seasonings except salt. During The Next 24 Hours The patient can gradually resume a normal diet as symptoms lessen. Preventing Spread Hand washing with soap and water is the best way to prevent the spread of viruses. Caregivers should wash their hands before andafter touching the sick person. The sick person, as well as everyone in the family,should wash their hands after using the toilet and before meals. Clean the toilet after each use. People with diarrhea should not prepare food for others. If you are preparing your own foods, wash your hands before and after. Follow Up with your doctor as advised. Call your doctor if you are not improving over the next 2 to 3 days. If a stool (diarrhea) sample was taken, you may call in 2 days (or as directed) for the results. Get Prompt Medical Attention if any of the following occur: Increasing abdominal pain Continued vomiting (unable to keep liquids down) Frequent diarrhea (more than 5 times a day) Blood in vomit or stool (black or red color) Dark urine, reduced urine output, or extreme thirst Weakness, dizziness, fainting Drowsiness, confusion, stiff neck, or seizure Fever of 100.4F (38C) oral or higher, not better with fever medication New rash Ondansetron Oral disintegrating tablet What is this medicine? ONDANSETRON (on CARL se gilbert) is used to treat nausea and vomiting caused by chemotherapy. It is also used to prevent or treat nausea and vomiting after surgery. How should I use this medicine? These tablets are made to dissolve in the mouth. Do not try to push the tablet through the foil backing. With dry hands, peel away the foil backing and gently remove the tablet. Place the tablet in the mouth and allow it to dissolve, then swallow. While you may take these tablets with water, it is not necessary to do so. Talk to your complementary health therapists regarding the use of this medicine in children. Special care may be needed. What side effects may I notice from receiving this medicine? Side effects that you should report to your doctor or health career placement specialist as soon as possible: allergic reactions like skin rash, itching or hives, swelling of the face, lips, or tongue breathing problems dizziness fast or irregular heartbeat feeling faint or lightheaded, falls fever and chills swelling of the hands and feet tightness in the chest Side effects that usually do not require medical attention (report to your doctor or health career placement specialist if they continue or are bothersome): constipation or diarrhea headache What may interact with this medicine? Do not take this medicine with any of the following medications: -apomorphine -cisapride -dofetilide -dronedarone -pimozide -thioridazine -ziprasidone This medicine may also interact with the following medications: -carbamazepine -phenytoin -rifampicin -tramadol -other medicines that prolong the QT interval (cause an abnormal heart rhythm) What if I miss a dose? If you miss a dose, take it as soon as you can. If it is almost time for your next dose, take only that dose. Do not take double or extra doses. Where should I keep my medicine? Keep out of the reach of children. Store between 2 and 30 degrees C (36 and 86 degrees F). Throw away any unused medicine after the expiration date. What should I tell my health care provider before I take this medicine? They need to know if you have any of these conditions: heart disease history of irregular heartbeat liver disease low levels of magnesium or potassium in the blood an unusual or allergic reaction to ondansetron, granisetron, other medicines, foods, dyes, or preservatives or trying to get breast-feeding What should I watch for while using this medicine? Check with your doctor or health career placement specialist as soon as you can if you have any sign of an allergic reaction. Promethazine Hydrochloride Rectal suppository What is this medicine? PROMETHAZINE (proe METH a zeen) is an antihistamine. It is used to treat allergic reactions and to treat or prevent nausea and vomiting from illness or motion sickness. It is also used to make you sleep before surgery, and to help treat pain or nausea after surgery. How should I use this medicine? This medicine is for rectal use only. Do not take by mouth. Wash your hands before and after use. Take off the foil wrapping. Wet the tip of the suppository with cold tap water to make it easier to use. Lie on your side with your lower leg straightened out and your upper leg bent forward toward your stomach. Lift upper buttock to expose the rectal area. Apply gentle pressure to insert the suppository completely into the rectum, pointed end first. Hold buttocks together for a few seconds. Remain lying down for about 15 minutes to avoid having the suppository come out. Do not use more often than directed. Talk to your complementary health therapists regarding the use of this medicine in children. Special care may be needed. This medicine should not be given to infants and children younger than 2 years old. What side effects may I notice from receiving this medicine? Side effects that you should report to your doctor or health career placement specialist as soon as possible: blurred vision irregular heartbeat, palpitations or chest pain muscle or facial twitches pain or difficulty passing urine seizures skin rash slowed or shallow breathing unusual bleeding or bruising yellowing of the eyes or skin Side effects that usually do not require medical attention (report to your doctor or health career placement specialist if they continue or are bothersome): headache nightmares, agitation, nervousness, excitability, not able to sleep (these are more likely in children) stuffy nose What may interact with this medicine? Do not take this medicine with any of the following medications: medicines called MAO Inhibitors like Nardil, Parnate, Marplan, Eldepryl other phenothiazines like trimethobenzamide This medicine may also interact with the following medications: barbiturates such as phenobarbital bromocriptine certain antidepressants certain antihistamines used in allergy or cold medicines epinephrine levodopa medicines for sleep medicines for mental problems and psychotic disturbances medicines for movement abnormalities as in Parkinson's disease, or for gastrointestinal problems muscle relaxants prescription pain medicines What if I miss a dose? If you miss a dose, use it as soon as you can. If it is almost time for your next dose, use only that dose. Do not use double doses. Where should I keep my medicine? Keep out of the reach of children. Store in a refrigerator between 2 and 8 degrees C (36 and 46 degrees F). Throw away any unused medicine after the expiration date. What should I tell my health care provider before I take this medicine? They need to know if you have any of these conditions: glaucoma high blood pressure or heart disease kidney disease liver disease lung or breathing disease, like asthma prostate trouble pain or difficulty passing urine seizures an unusual or allergic reaction to promethazine or phenothiazines, other medicines, foods, dyes, or preservatives or trying to get breast-feeding What should I watch for while using this medicine? Tell your doctor or health career placement specialist if your symptoms do not start to get better in 1 to 2 days. You may get drowsy or dizzy. Do not drive, use machinery, or do anything that needs mental alertness until you know how this medicine affects you. To reduce the risk of dizzy or fainting spells, do not stand or sit up quickly, especially if you are an older patient. Alcohol may increase dizziness and drowsiness. Avoid alcoholic drinks. Your mouth may get dry. Chewing sugarless gum or sucking hard candy, and drinking plenty of water may help. Contact your doctor if the problem does not go away or is severe. This medicine may cause dry eyes and blurred vision. If you wear contact lenses you may feel some discomfort. Lubricating drops may help. See your eye doctor if the problem does not go away or is severe. This medicine can make you more sensitive to the sun. Keep out of the sun. If you cannot avoid being in the sun, wear protective clothing and use sunscreen. Do not use sun lamps or tanning beds/booths. If you are diabetic, check your blood-sugar levels regularly. You have been given the following additional information: Alcohol Intoxication Marijuana Abuse Gastritis (Adult) Gastroenteritis, Viral (6Y-Adult) Ondansetron Oral disintegrating tablet Promethazine Hydrochloride Rectal suppository No driving or operating machinery while taking medication. Sedative medication was given during your visit. (Electronically signed by Fazal Aranda MD 11/12/2016 21:33)
--- NOTE | 2016-11-12 21:34 | ED MAR SUMMARY ---
..... Medication Administration Record [facility] [address] [place] [address] Patient: MARIELA LOU Visit ID: [id number] 45y, F Weight: 65.7 kg Height/Length: 63 in BMI: 25.7 ALLERGIES: No Known Drug Allergy Start 14:50 11/11/2016 Ochoa Magallanes R.N., Stop 15:28 11/11/2016 Ochoa Magallanes R.N. Medication Administered: IV NS (SALINE), Dose: IV Fluids over 1 hour(s), Rate: 1000 mL/hr, Dispensed: 1000 mL bag, Site: #1. Medication Ordered: IV NS : initial bolus none -, then 1000 mL/hr for X1 (NOW). Given 15:00 11/11/2016 Ochoa Magallanes R.N. Medication Administered: ZOFRAN [IVP] (ONDANSETRON HCL), Dose: 4 mg IVP over 2 minute(s), Site: #1 right AC. Medication Ordered: Zofran IV 4 mg (NOW). Start 15:30 11/11/2016 Ochoa Magallanes R.N., Stop 16:22 11/11/2016 Ochoa Magallanes R.N. Medication Administered: IV NS (SALINE), Dose: IV Fluids over 1 hour(s), Rate: 1000 mL/hr, Dispensed: 1000 mL bag, Site: #1 right AC. Medication Ordered: IV NS : initial bolus none -, then 1000 mL/hr for X1 (NOW). Given 15:33 11/11/2016 Ochoa Magallanes R.N. Medication Administered: ZOFRAN [IVP] (ONDANSETRON HCL), Dose: 4 mg IVP over 2 minute(s), Site: #1 right AC. Medication Ordered: Zofran IV 4 mg (NOW). Given 16:10 11/11/2016 Ochoa Magallanes R.N. Medication Administered: PHENERGAN [IVP] (PROMETHAZINE HCL), Dose: 25 mg IVP over 2 minute(s), Site: #1 right AC. Medication Ordered: Phenergan IV 25 mg (HIGH ALERT MEDICATION, NOW).
== END 2016-11-11 18:34 | disposition home or self-care (01) ==
LOC: ED SRH 14:37
DX: K52.9 Noninfective gastroenteritis and colitis, unspecified (principal); K29.20 Alcoholic gastritis without bleeding; R11.2 Nausea with vomiting, unspecified; F12.10 Cannabis abuse, uncomplicated; F10.10 Alcohol abuse, uncomplicated; Z79.899 Other long term (current) drug therapy
CPT/HCPCS: 90004; 90100; 90616; 91320; 91556; 92010; 92235; 92530; 92610; 92720; 92760; 92761; 92762; 92763; 92764; 92765; 92766; 92767; 95059